=== PATIENT | male | born 1945 | race Caucasian/White ===

== ENCOUNTER 2018-01-22 10:35 | Emergency (ER) | payer MEDICARE ==
--- NOTE | 2018-01-22 11:10 | ED ---
Throat Pain/Nasal Congestion - HPI Summary HPI Summary: 72 y/o male presents to the ED c/o episodes of "sawtooth disturbance in vision" lasting 10-15 minutes, intermittently.Pt first developed this around 3 months ago, episodes occurring once every 7-10 days. Pt had 1x episode yesterday and 2x today before coming to the ED. Denies pain, trouble with speech. Pt states he does have a chronic floater that is "always there". Associated sx: intermittent ringing in ears. Recent R knee sx (October 2017). PCP Y[facility]. FHx - mother had ocular degeneration. This is scribe Ed Alena documenting for attending Grayson Jain MD. I, Dr. Jain, personally performed the services described in this documentation as scribed in my presence and it is both accurate and complete. - History of Current Complaint Chief Complaint: EDEyeProblem Time Seen by Provider: 01/22/18 10:58 Hx Obtained From: Patient Onset/Duration: Lasting Minutes - Allergies/Home Medications Allergies/Adverse Reactions: Allergies Allergy/AdvReac Type Severity Reaction Status Date / Time No Known Allergies Allergy Verified 01/22/18 10:52 Home Medications: Home Medications Finasteride TAB* [Proscar TAB*] 5 mg PO DAILY 01/22/18 [History Confirmed ] Olmesartan/Hydrochlorothiazide [Olmesartan Medoxomil/Hydr 20-12.5 mg] 0.5 tab PO DAILY 01/22/18 [History Confirmed 01/22/18] Tamsulosin CAP* [Flomax CAP*] 0.4 mg PO DAILY 01/22/18 [History Confirmed ] Timolol 0.5% OPTH.MESHA* [Timoptic 0.5% Opth*] 1 drop BOTH EYES BID 01/22/18 [ History Confirmed 01/22/18] Varicella-Zoster Ge/As01b/Pf* [Shingrix Vial Kit*] 50 mcg IM ONCE 01/22/18 [ History Confirmed 01/22/18] PMH/Surg Hx/FS Hx/Imm Hx Previously Healthy: No Endocrine/Hematology History: Denies: Hx Diabetes Cardiovascular History: Reports: Hx Hypertension - CONTROL WITH MEDICATION Denies: Hx Pacemaker/ICD History: Reports: Hx Kidney Stones - YEARS AGO - PASSED, Other Problems/ Disorders - HX OF ENLARGED PROSTATE Denies: Hx Renal Disease Musculoskeletal History: Denies: Hx Scoliosis Sensory History: Reports: Hx Cataracts - RIGHT, Hx Contacts or Glasses - READING GLASSES, Hx Glaucoma - BILATERAL Denies: Hx Hearing Aid Opthamlomology History: Reports: Hx Cataracts - RIGHT, Hx Contacts or Glasses - READING GLASSES, Hx Glaucoma - BILATERAL Neurological History: Denies: Hx Headaches Psychiatric History: Denies: Hx Panic Disorder - Surgical History Surgery Procedure, Year, and Place: 2013 eye surgery right 1 RETINA WILY,IN OFFICE PROCEDURE- NO IMPLANTS. 2010 [place] 2011 knee left SURGERY, [facility]. 2012 RIGHT hernia repair [place] [facility] RIGHT KNEE REPAIR 2017 [facility] Hx Anesthesia Reactions: No Infectious Disease History: No Infectious Disease History: Denies: Traveled Outside the [place] in Last 30 Days - Family History Known Family History: Positive: Other - mother - ocular degeneration - Social History Alcohol Use: None Hx Substance Use: No Substance Use Type: Reports: None Hx Tobacco Use: No Smoking Status (MU): Former Smoker Type: Cigars Amount Used/How Often: OCCASIONAL CIGAR Have You Smoked in the Last Year: Yes Review of Systems Constitutional: Negative Positive: Other - "sawtooth disturbance in vision" ENT: Other - ringing in ears Cardiovascular: Negative Respiratory: Negative Gastrointestinal: Negative Genitourinary: Negative Musculoskeletal: Negative Skin: Negative Neurological: Negative Psychological: Normal All Other Systems Reviewed And Are Negative: Yes Physical Exam - Summary Physical Exam Summary: Appearance: The patient is well-nourished in no acute distress and in no acute pain. Skin: The skin is warm and dry and skin color reflects adequate perfusion. HEENT: The head is normocephalic and atraumatic. The pupils are equal and reactive. The conjunctivae are clear and without drainage. Nares are patent and without drainage. Mouth reveals moist mucous membranes and the throat is without erythema and exudate. The external ears are intact. The ear canals are patent and without drainage. The tympanic membranes are intact. Neck: The neck is supple with full range of motion and non-tender. There are no carotid bruits. There is no neck vein distension. Respiratory: Chest is non-tender. Lungs are clear to auscultation and breath sounds are symmetrical and equal. Cardiovascular: Heart is regular rate and rhythm. There is no murmur or rub auscultated. There is no peripheral edema and pulses are symmetrical and equal. Abdomen: The abdomen is soft and non-tender. There are normal bowel sounds heard in all four quadrants and there is no organomegaly palpated. Musculoskeletal: There is no back tenderness noted. Extremities are non-tender with full range of motion. There is good capillary refill. There is no peripheral edema or calf tenderness elicited. Neurological: Patient is alert and oriented to person, place and time. The patient has symmetrical motor strength in all four extremities. Cranial nerves are grossly intact. Deep tendon reflexes are symmetrical and equal in all four extremities. Psychiatric: The patient has an appropriate affect and does not exhibit any anxiety or depression. Triage Information Reviewed: Yes Vital Signs On Initial Exam: Initial Vitals Temp Pulse Resp BP Pulse Ox 97.9 F 64 16 136/79 98 01/22/18 10:46 01/22/18 10:46 01/22/18 10:46 01/22/18 10:46 01/22/18 10:46 Vital Signs Reviewed: Yes Diagnostics - Vital Signs Vital Signs Temp Pulse Resp BP Pulse Ox 01/22/18 10:46 97.9 F 64 16 136/79 98 - Laboratory Result Diagrams: 01/22/18 11:33 01/22/18 11:33 Lab Statement: Any lab studies that have been ordered have been reviewed, and results considered in the medical decision making process. - CT HEAD/NECK CTA CT Interpretation: No Acute Changes - #. No evidence for central large vessel intracranial arterial occlusion or stenosis. #. No acute intracranial process evident. CT Interpretation Completed By: Radiologist - EKG 1 EKG Interpretation: 11:27 - SR @ 62 BPM. RBBB Re-Evaluation - Re-Evaluation 1 Re-Evaluation Time: 14:32 Comment: discuss test results, plan of care EENT Course/Dx - Course Course Of Treatment: Mr. Garcia presents complaining that for about 3 months he has had episodes of multiple floaters in his bilateral eyes that last for just a few minutes. They occur about once a week. 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 He had an episode yesterday and an episode today which is unusual for him so he presented to the emergency department. He has no headache and his symptoms have resolved on arrival. He was worked up with labs and CT of the head and neck which are within normal limits showing only very mild atherosclerotic carotid disease. It 's unlikely that he would have TIAs in the same location for 3 months. I spoke with Dr. Arzate on-call for neurology and he agreed that it is unlikely there is any dangerous event occurring and recommended follow-up with neurology as an outpatient. - Diagnoses Provider Diagnoses: Ocular migraine - Provider Notifications Discussed Care Of Patient With: Tamika Arzate Time Discussed With Above Provider: 14:20 Instructed by Provider To: Other - Have pt f/u at Dr. Arzate's office Discharge - Sign-Out/Discharge Documenting (check all that apply): Patient Departure - Discharge Plan Condition: Stable Disposition: HOME Patient Education Materials: Ocular Migraine (ED) Referrals: Tamika Arzate MD [Medical Doctor] - 2 Days (PLEASE F/U IN 1-2 DAYS) Additional Instructions: RETURN TO THE ED FOR WORSENING SYMPTOMS - Billing Disposition and Condition Condition: STABLE Disposition: Home
--- OUTSIDE RECORDS SUMMARY | 2018-01-22 11:28 | XMS REPORT ---
:1945 External Reference #:[id number] Author Organization [facility] Address [address] [address] Phone [phone] Care Team Providers Name Role Phone Kalpana Fonseca RN MS MATERIAL EXPEDITER Care Team Information Family Services Assistant Unavailable Payers Type Date Identification Numbers Payment Provider Subscriber Medicare Primary Effective: Policy Number: Medicare Anjum Garcia 2008 [id number] PayID: [id number] [address] [place] [address] [facility] Part [facility] Policy Number: [id number] [facility] Healthcare Options Anjum Garcia PayID: [id number] [address] [place] [address] Problems Date Description Provider Status Onset: 01/14/2018 Essential hypertension Yong Gage PA Active Onset: 01/14/2018 Mixed hyperlipidemia Yong Gage PA Active Onset: 09/19/2014 Tobacco user Elicia Caldera MD Active Onset: 09/19/2014 Glaucoma Elicia Caldera MD Active Onset: 09/28/2010 Benign prostatic hypertrophy with Joseph Cantrell MD Active outflow obstruction Onset: 09/19/2014 Steatosis of liver Elicia Caldera MD Active Onset: 01/14/2018 Diverticular disease of colon Yong Gage PA Active Onset: 06/19/2014 Actinic keratosis Elicia Caldera MD Active Onset: 09/28/2010 Carpal tunnel syndrome Joseph Cantrell MD Active Family History Date Family Member(s) Problem(s) Comments Father due to Rheumatoid () Arthriitis Mother Waldenstroms Macroglobulinemia : (age 92 Mother due to Pneumonia Years) Number of Siblings Siblings: none. Pt is an only child. Social History Type Date Description Comments Marital Status Significant Other Occupation [facility] q winterwas in the [employer] Cigarette Use Former Cigarette Smoker 1 Pack Quit 2011, now social Daily cigarettes smoking regular Cigar smoking 5 q week, X 20 yrs, quitted once for 10 yrs before with a friend, resumed after divorce, ETOH Use Occasionally consumes alcohol Smoking Patient is a former smoker 1pk per day for ~30yrs. Smoking Patient is a current smoker, Cigar ~2-3 per week smokes some days Allergies, Adverse Reactions, Alerts Date Description Reaction Status Severity Comments 04/03/2005 NKDA active Medications Medication Date Status Form Strength Qnty SIG Indications Ordering Provider Shingrix 01/14/ Active Suspension 50mcg 1units 1 injection Z00. 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 Soledad Maleate 2016 eyes twice Leslie a day MD Carlota Olmesartan 11/19/ Active Tablets 20-12.5mg 45tabs take I10 Soledad Medoxomil/Hy 2017 one-half Leslie drochlorothi tablet by MD Carlota azide mouth every day I10 Tamsulosin HCL 11/19/2016 Active Capsules 0.4mg 90caps take 1 N40.1 Mernadam, capsule by Leslie Van MD mouth every day R97.2 Finasteride 05/31/2013 Active Tablets 5mg 90tabs 1 by mouth N40.1 Macadam, every day Leslie Van MD Chantix 06/01/2015 - Hx Tablets 0.5mg 1tabs to start 1 Elicia Caldera Starting Month 05/16/2016 X 11 week before MD Romeo Celestin & 1 target quit mg X day; day 1-3: 42 0.5mg qday; day 4-7: 0.5mg bid; day 7+ 1mg twice a day for 11 weeks Chantix 06/01/2015 - Hx Tablets 1mg 1pack after the Elicia Caldera Continuing 05/16/2016 starter packSabi MD Month Pak continue 1 tab twice a day for 11 weeks. may extend tx for another 12 weeks. Combigan 09/19/2014 - Hx Solution 0.2-0 b/l bid Elicia Caldera 06/01/2015 .5% MD Sabi Travatan Z 09/19/2014 - Hx Solution 0.004 1 qday Elicia Caldera 06/01/2015 % MD Sabi Maxitrol 07/14/2014 - Hx Ointment 3.5-1 3.5g 1/2 " ribbon Elicia Caldera 09/19/2014 0000- over affected MD Sabi 0.1 eye conjunctival sac 3-4 X daily, max 2 weeks Optivar 07/04/2014 - Hx Solution 0.05% 1units 1 ggt to b/l 372.00 Elicia Caldera 09/19/2014 twice a day as MD Sabi needed Trimethoprim 07/04/2014 - Hx Solution 75414 1units 2 ggt four 372.00 Elicia Caldera Sulfate/Polymy 09/19/2014 -0.1U times a day x MD Sabi jose B Sulfate nit/M 1-2 weeks L-% Augmentin 04/20/2014 - Hx Tablets 875-1 20tabs 1 tab by mouth V41.3 Elicia Caldera 05/30/2014 25mg twice a day x MD Sabi 10 days Elidel Cream 02/17/2014 - Hx Cream 1% 60gm Apply Elicia Caldera 05/30/2014 Sparingly bid MD Sabi prn Cipro 11/18/2012 - Hx Tablets 250mg 14tabs 1 tab po bidx 599.70 Elicia Caldera 05/31/2013 7 days MD Sabi Aspirin 11/16/2012 - Hx Tablets 81mg 30tabs 1 po qd Elicia Caldera 11/19/2016 MD Sabi Fluorouracil 05/25/2012 - Hx Cream 5% 1tube Apply bid to 702.11 Trabout , 11/25/2012 lesions x 3 andres Ruiz MD 702.19 Phentermine 01/06/2012 - Hx Tablets 37.5mg 30tabs 1 po qam 278.00 Trabout, HCL 05/25/2012 MD Joseph Ibuprofen 02/21/2010 - Hx Tablets 200mg Takes 3 at a 721.1 Trabout, 11/16/2012 time with food MD Joseph Gabapentin 09/15/2009 - Hx Capsules 300mg 90caps 1 po qhs x 1 721.1 Trabout, 11/03/2009 week, 2 po qhs shaniqua Ruiz 1 week. can MD increase to as much as 4 po qhs Meloxicam 09/15/2009 - Hx Tablets 15mg 30tabs 1 po qd with 721.1 Trabout, 12/20/2009 food MD Joseph Physical 09/15/2009 - Hx dx: cervical 721.1 Trabout, Therapy 05/20/2011 neck pain with Joseph C5-C6 radiculopathy evaluate and rx biw-tiw Trial cervical traction. Benicar HCT 07/26/2009 - Hx Tablets 20-12.5m 90tabs take one-half I10 Macadam, 11/19/2016 g tablet by mouth Leslie every day MD Carlota I1Brissa Cipro 12/26/2008 - Hx Tablets 500mg 30tabs 1 po bid 601.0 Trabout, 07/26/2009 MD Joseph Flomax 08/12/2007 - Hx Capsules 0.4mg 90caps Take 1 capsule N40.1 Kalpana Fonseca 11/19/2016 by mouth C RN MS MATERIAL EXPEDITER every day R97.2 Chantix 07/09/2006 - Hx Starter 1Pack as directed 305.1 Trabout, 02/21/2010 Pack .5/1mg for smoking MD Joseph cessation. Elidel 01/01/2006 - Hx Cream 1% 30gm Apply Trabout, Cream 05/20/2011 Sparingly bid MD Joseph prn Avalide 01/04/2005 - Hx Tablets 150-12.5mg 90tabs 1 po qd 401.1 Trabout , 07/26/2009 MD Joseph Immunizations CPT Code Status Date Vaccine Reaction Lot # [id number] Given 01/14/2018 Tdap (Adacel) Ages 7 And [id number] Above Only 18545 Given 04/25/2016 Influenza Vac, 3 Yrs & [id number] Older, Quadrivalent, Split, [place] Use 92900 Given 04/26/2015 Influenza Vac, 3 Yrs & [id number] Older, Quadrivalent, Split, Im Use Q2038 Given 05/30/2014 Fluzone Trivalent No allergy to eggs/egg [id number] Immunization products, No illness past 48 hrs., has had vaccine in past. Q2038 Given 04/12/2013 Fluzone Trivalent [id number] Immunization Q2038 Given 05/25/2012 Fluzone Trivalent [id number] Immunization 38341 Given 01/04/2011 Varicella (Chicken Pox) 1345Z Immunization 32858 Given 11/13/2010 Varicella (Chicken Pox) Immunization 56567 Given 11/13/2010 Varicella-Zoster Immune 1345Z Globulin 95616 Given 12/24/1999 Immunization Td 7 Yrs Or Older Vital Signs Date Vital Result Comment 01/14/2018 Weight 225.00 lb Heart Rate 73 /min BP Systolic 121 mmHg BP Diastolic 77 mmHg Height 73 inches 6'1" BMI (Body Mass Index) 29.7 kg/m2 Urine Dipstick - Blood 1+ Urine Dipstick - Protein NEGATIVE Urine Dipstick - Glucose NEGATIVE Urine Dipstick - Leukocytes 1+ Left ear audiology results 8FT Right ear audiology results 8FT Left Visual Acuity Distance 20/40 Both 20/40 11/19/2016 Weight 243.00 lb Heart Rate 96 /min BP Systolic 115 mmHg BP Diastolic 78 mmHg Height 73 inches 6'1" BMI (Body Mass Index) 32.1 kg/m2 05/16/2016 Weight 239.12 lb Heart Rate 78 /min BP Systolic 130 mmHg BP Diastolic 74 mmHg Height 73 inches 6'1" BMI (Body Mass Index) 31.5 kg/m2 Urine Dipstick - Blood 1+ Urine Dipstick - Protein TRACE Urine Dipstick - Glucose NEGATIVE Urine Dipstick - Leukocytes NEGATIVE 12/29/2015 Weight 245.25 lb Heart Rate 84 /min BP Systolic 135 mmHg BP Diastolic 85 mmHg Height 73 inches 6'1" BMI (Body Mass Index) 32.4 kg/m2 06/01/2015 Weight 243.12 lb Heart Rate 83 /min BP Systolic 132 mmHg BP Diastolic 79 mmHg Height 73 inches 6'1" BMI (Body Mass Index) 32.1 kg/m2 Urine Dipstick - Blood 1+ Urine Dipstick - Protein NEGATIVE Urine Dipstick - Glucose NEGATIVE Urine Dipstick - Leukocytes 1+ Right Visual Acuity Distance 20/30 Left Visual Acuity Distance 20/30 Both 20/30 05/16/2015 Weight 243.00 lb Heart Rate 84 /min BP Systolic 134 mmHg BP Diastolic 86 mmHg Height 73 inches 6'1" BMI (Body Mass Index) 32.1 kg/m2 09/12/2014 Weight 242.00 lb Heart Rate 74 /min BP Systolic 129 mmHg BP Diastolic 80 mmHg Height 73 inches 6'1" BMI (Body Mass Index) 31.9 kg/m2 07/04/2014 Weight 245.00 lb Heart Rate 107 /min BP Systolic 150 mmHg BP Diastolic 93 mmHg 05/30/2014 Weight 243.12 lb Heart Rate 90 /min BP Systolic 124 mmHg BP Diastolic 81 mmHg Height 74.5 inches 6'2.50" BMI (Body Mass Index) 30.8 kg/m2 Urine Dipstick - Blood TRACE Urine Dipstick - Protein NEGATIVE Urine Dipstick - Glucose NEGATIVE 04/20/2014 Weight 245.00 lb Heart Rate 89 /min BP Systolic 134 mmHg BP Diastolic 92 mmHg Height 74 inches 6'2" BMI (Body Mass Index) 31.5 kg/m2 02/17/2014 Weight 242.00 lb Heart Rate 76 /min BP Systolic 123 mmHg BP Diastolic 85 mmHg Height 74 inches 6'2" BMI (Body Mass Index) 31.1 kg/m2 05/31/2013 Weight 243.00 lb Heart Rate 81 /min BP Systolic 130 mmHg BP Diastolic 88 mmHg Height 74 inches 6'2" BMI (Body Mass Index) 31.2 kg/m2 Urine Dipstick - Blood 1+ Pos WBC Urine Dipstick - Protein NEGATIVE Urine Dipstick - Glucose NEGATIVE 11/25/2012 Weight 236.00 lb Heart Rate 95 /min BP Systolic 138 mmHg BP Diastolic 84 mmHg Height 73 inches 6'1" BMI (Body Mass Index) 31.1 kg/m2 Urine Dipstick - Blood 1+ And WBC Urine Dipstick - Protein NEGATIVE Urine Dipstick - Glucose NEGATIVE 11/16/2012 Weight 238.00 lb Heart Rate 78 /min BP Systolic 129 mmHg BP Diastolic 85 mmHg Urine Dipstick - Blood 1+ WBC Pos +1 Urine Dipstick - Protein 1+ Urine Dipstick - Glucose NEGATIVE 10/28/2012 Weight 235.00 lb Heart Rate 84 /min BP Systolic 139 mmHg BP Diastolic 84 mmHg 09/16/2012 Weight 238.00 lb Heart Rate 97 /min BP Systolic 127 mmHg BP Diastolic 83 mmHg 05/25/2012 Weight 248.00 lb Heart Rate 95 /min BP Systolic 124 mmHg BP Diastolic 77 mmHg Urine Dipstick - Blood 1+ And WBC Urine Dipstick - Protein NEGATIVE Urine Dipstick - Glucose NEGATIVE Last Menstrual Period 0 01/06/2012 Weight 253.00 lb Heart Rate 82 /min BP Systolic 120 mmHg BP Diastolic 70 mmHg Height 74 inches 6'2" BMI (Body Mass Index) 32.5 kg/m2 09/02/2011 Weight 247.00 lb Heart Rate 87 /min BP Systolic 117 mmHg BP Diastolic 75 mmHg 05/20/2011 Weight 237.00 lb Heart Rate 99 /min BP Systolic 136 mmHg BP Diastolic 83 mmHg Height 77 inches 6'5" BMI (Body Mass Index) 28.1 kg/m2 Urine Dipstick - Blood 1+ And WBC Urine Dipstick - Protein NEGATIVE Urine Dipstick - Glucose NEGATIVE 05/13/2011 Weight 236.00 lb Heart Rate 110 /min BP Systolic 128 mmHg BP Diastolic 82 mmHg 09/28/2010 Weight 239.00 lb Heart Rate 96 /min BP Systolic 118 mmHg BP Diastolic 79 mmHg 06/18/2010 Weight 234.00 lb Heart Rate 93 /min BP Systolic 134 mmHg BP Diastolic 80 mmHg 02/21/2010 Weight 250.00 lb Heart Rate 104 /min BP Systolic 123 mmHg BP Diastolic 79 mmHg Height 75 inches 6'3" BMI (Body Mass Index) 31.2 kg/m2 Urine Dipstick - Blood 1+ wbc Urine Dipstick - Protein NEGATIVE Urine Dipstick - Glucose NEGATIVE 12/20/2009 Weight 249.00 lb Heart Rate 99 /min BP Systolic 136 mmHg BP Diastolic 82 mmHg 09/15/2009 Weight 254.00 lb Heart Rate 107 /min BP Systolic 144 mmHg BP Diastolic 88 mmHg 07/26/2009 Weight 253.00 lb Heart Rate 105 /min BP Systolic 136 mmHg BP Diastolic 82 mmHg 06/21/2009 Weight 246.00 lb Heart Rate 118 /min BP Systolic 150 mmHg BP Diastolic 84 mmHg 02/17/2009 Urine Dipstick - Blood 1+ Urine Dipstick - Protein NEGATIVE Urine Dipstick - Glucose NEGATIVE 01/23/2009 Body Temperature 97.6 F Heart Rate 87 /min BP Systolic 144 mmHg BP Diastolic 86 mmHg Urine Dipstick - Blood 1+ And A Trace Of WBC Urine Dipstick - Protein TRACE Urine Dipstick - Glucose NEGATIVE 01/09/2009 Weight 242.00 lb Heart Rate 83 /min BP Systolic 124 mmHg BP Diastolic 84 mmHg 12/26/2008 Body Temperature 97.7 F Weight 240.00 lb Heart Rate 91 /min BP Systolic 144 mmHg BP Diastolic 99 mmHg Height 74 inches 6'2" BMI (Body Mass Index) 30.8 kg/m2 Urine Dipstick - Blood 1+ Urine Dipstick - Protein 1+ Urine Dipstick - Glucose NEGATIVE 11/23/2008 Weight 245.00 lb Heart Rate 101 /min BP Systolic 143 mmHg BP Diastolic 89 mmHg 08/12/2007 Weight 235.00 lb With Boots Heart Rate 94 /min BP Systolic 144 mmHg BP Diastolic 83 mmHg Height 6.2 inches 0'6.20" BMI (Body Mass Index) 4297.7 kg/m2 Urine Dipstick - Blood TRACE And WBC Urine Dipstick - Protein NEGATIVE Urine Dipstick - Glucose NEGATIVE 07/09/2006 Weight 241.00 lb Heart Rate 90 /min BP Systolic 138 mmHg BP Diastolic 80 mmHg Height 6.2 inches 0'6.20" BMI (Body Mass Index) 4407.5 kg/m2 Urine Dipstick - Blood TRACE Urine Dipstick - Protein TRACE Urine Dipstick - Glucose TRACE 04/03/2005 Weight 238.00 lb Heart Rate 92 /min BP Systolic 119 mmHg BP Diastolic 72 mmHg Urine Dipstick - Blood 1+ Urine Dipstick - Protein 1+ Urine Dipstick - Glucose NEGATIVE Results Test Date Test Result H/L Range Note Laboratory test finding 01/14/2018 PSA <pending> Magnesium <pending> TSH <pending> Esr <pending> Comprehensive Metabolic (CMP) 05/13/2016 Sodium 136 mmol/L 134-142 Potassium 5.2 mmol/L 3.5-5.2 Chloride 101 mmol/L 97-109 Carbon Dioxide 32 mmol/L 24-34 Glucose 103 mg/dL 70-105 BUN 14 mg/dL 6-26 Creatinine 1.0 mg/dL 0.5-1.4 Calcium 9.6 mg/dL 8.5-10.2 Total Protein 6.9 g/dL 6.0-8.0 Albumin 4.2 g/dL 3.6-4.9 Globulin 2.7 g/dL 2.0-3.5 A/G Ratio 1.6 Ratio 1.0-2.2 Total Bilirubin 0.5 mg/dL 0.1-1.3 Alkaline Phosphatase 55 U/L 24-140 Alt 26 U/L 3-42 Ast 17 U/L 8-42 Anion Gap 8 mmol/L 6-14 Crystal Egfr >60 >60 1 Non Crystal Egfr >60 >60 2 CBC With Auto Diff 05/13/2016 WBC 9.5 K/uL 4.1-11.0 RBC 5.13 M/uL 4.60-6.10 Hemoglobin 16.6 gm/dL 13.5-18.0 Hematocrit 47.7 % 41.0-53.0 MCV 93.0 fL 80.0-97.0 MCH 32.3 pg High 27.0-32.0 MCHC 34.8 g/dL 32.0-36.0 RDW 12.7 % 11.5-14.5 PLT Count 198 K/ul 140-400 Neutrophil 53.4 % 35.0-75.0 Lymphocyte 34.2 % 16.0-52.0 Monocyte 7.6 % 2.0-10.0 Eosinophil 3.5 % 0.0-5.0 Basophil 1.3 % 0.0-4.0 Abs Neutrophils 5.1 K/uL 2.1-8.0 Abs Lymphocytes 3.3 K/uL 0.8-5.5 Abs Monocytes 0.7 K/uL 0.1-1.0 Abs Eosinophils 0.3 K/uL 0.0-0.5 Abs Basophils 0.1 K/uL 0.0-0.3 Lipid 05/13/2016 Cholesterol 152 mg/dL 50-199 Triglycerides 253 mg/dL High 30-200 HDL 33 mg/dL 29-71 3 Chol/ HDL Ratio 4.6 ratio 4.0-6.7 VLDL 51 mg/dL High 2-29 LDL (Calc) 68 mg/dL 20-99 4 Laboratory test finding 05/13/2016 TSH 2.52 uIU/mL 0.35-4.94 PSA 1.110 ng/mL 0.000-4.000 5 CBC With Auto Diff 05/29/2015 WBC 8.1 K/uL 4.1-11.0 RBC 4.93 M/uL 4.60-6.10 Hemoglobin 15.7 gm/dL 13.5-18.0 Hematocrit 46.1 % 41.0-53.0 MCV 93.5 fL 80.0-97.0 MCH 31.8 pg 27.0-32.0 MCHC 34.0 g/dL 32.0-36.0 RDW 12.7 % 11.5-14.5 PLT Count 172 K/ul 140-400 Neutrophil 48.2 % 35.0-75.0 Lymphocyte 37.5 % 16.0-52.0 Monocyte 7.6 % 2.0-10.0 Eosinophil 5.3 % High 0.0-5.0 Basophil 1.4 % 0.0-4.0 Abs Neutrophils 3.9 K/uL 2.1-8.0 Abs Lymphocytes 3.0 K/uL 0.8-5.5 Abmon 0.6 K/uL 0.1-1.0 Abs Eosinophils 0.4 K/uL 0.0-0.5 Abs Basophils 0.1 K/uL 0.0-0.3 Laboratory test finding 05/29/2015 Vitamin B12 248 pg/mL 180-914 TSH 1.89 uIU/mL 0.35-4.94 Lipid 05/29/2015 Cholesterol 148 mg/dL 50-199 Triglycerides 315 mg/dL High 30-200 HDL 29 mg/dL 29-71 6 Chol/ HDL Ratio 5.1 ratio 4.0-6.7 VLDL 63 mg/dL High 2-29 LDL (Calc) 56 mg/dL 20-99 7 Comprehensive Metabolic (CMP) 05/29/2015 Sodium 135 mmol/L 134-142 Potassium 4.6 mmol/L 3.5-5.2 Chloride 103 mmol/L 97-109 Carbon Dioxide 27 mmol/L 24-34 Glucose 101 mg/dL 70-105 BUN 14 mg/dL 6-26 Creatinine 1.0 mg/dL 0.5-1.4 Calcium 9.3 mg/dL 8.5-10.2 Total Protein 6.7 g/dL 6.0-8.0 Albumin 4.0 g/dL 3.6-4.9 Globulin 2.7 g/dL 2.0-3.5 A/G Ratio 1.5 Ratio 1.0-2.2 Total Bilirubin 0.5 mg/dL 0.1-1.3 Alkaline Phosphatase 55 U/L 24-140 Alt 18 U/L 3-42 Ast 15 U/L 8-42 Anion Gap 10 mmol/L 6-14 Crystal Egfr >60 >60 8 Non Crystal Egfr >60 >60 9 Laboratory test finding 05/29/2015 PSA 1.180 ng/mL 0.000-4.000 10 CBC With Auto Diff 09/12/2014 WBC 9.1 K/uL 4.1-11.0 11 RBC 5.15 M/uL 4.60-6.10 11 Hemoglobin 16.6 gm/dL 13.5-18.0 11 Hematocrit 47.9 % 41.0-53.0 11 MCV 92.9 fL 80.0-97.0 11 MCH 32.2 pg High 27.0-32.0 11 MCHC 34.7 g/dL 32.0-36.0 11 RDW 12.9 % 11.5-14.5 11 PLT Count 185 K/ul 140-400 11 Neutrophil 49.4 % 35.0-75.0 11 Lymphocyte 36.8 % 16.0-52.0 11 Monocyte 8.3 % 2.0-10.0 11 Eosinophil 4.3 % 0.0-5.0 11 Basophil 1.2 % 0.0-4.0 11 Abs Neutrophils 4.5 K/uL 2.1-8.0 11 Abs Lymphocytes 3.3 K/uL 0.8-5.5 11 Abmon 0.8 K/uL 0.1-1.0 11 Abs Eosinophils 0.4 K/uL 0.0-0.5 11 Abs Basophils 0.1 K/uL 0.0-0.3 11 Comprehensive Metabolic (CMP) 09/12/2014 Sodium 136 mmol/L 134-142 11 Potassium 4.7 mmol/L 3.5-5.2 11 Chloride 101 mmol/L 97-109 11 Carbon Dioxide 28 mmol/L 24-34 11 Glucose 96 mg/dL 70-105 11 BUN 11 mg/dL 6-26 11 Creatinine 1.0 mg/dL 0.5-1.4 11 Calcium 9.7 mg/dL 8.5-10.2 11 Total Protein 7.4 g/dL 6.0-8.0 11 Albumin 4.4 g/dL 3.6-4.9 11 Globulin 3.0 g/dL 2.0-3.5 11 A/G Ratio 1.5 Ratio 1.0-2.2 11 Total Bilirubin 0.5 mg/dL 0.1-1.3 11 Alkaline Phosphatase 53 U/L 24-140 11 Alt 45 U/L High 3-42 11 Ast 26 U/L 8-42 11 Anion Gap 12 mmol/L 6-14 11 Crystal Egfr >60 >60 11, 12 Non Crystal Egfr >60 >60 11, 13 CBC With Auto Diff 05/24/2014 WBC 8.7 K/uL 4.1-11.0 14 RBC 4.99 M/uL 4.60-6.10 14 Hemoglobin 16.0 gm/dL 13.5-18.0 14 Hematocrit 46.9 % 41.0-53.0 14 MCV 93.9 fL 80.0-97.0 14 MCH 32.0 pg 27.0-32.0 14 MCHC 34.1 g/dL 32.0-36.0 14 RDW 12.5 % 11.5-14.5 14 PLT Count 186 K/ul 140-400 14 Neutrophil 53.9 % 35.0-75.0 14 Lymphocyte 32.5 % 16.0-52.0 14 Monocyte 7.6 % 2.0-10.0 14 Eosinophil 5.1 % High 0.0-5.0 14 Basophil 0.9 % 0.0-4.0 14 Abs Neutrophils 4.7 K/uL 2.1-8.0 14 Abs Lymphocytes 2.8 K/uL 0.8-5.5 14 Abmon 0.7 K/uL 0.1-1.0 14 Abs Eosinophils 0.4 K/uL 0.0-0.5 14 Abs Basophils 0.1 K/uL 0.0-0.3 14 Comprehensive Metabolic (CMP) 05/24/2014 Sodium 137 mmol/L 134-142 14 Potassium 4.6 mmol/L 3.5-5.2 14 Chloride 101 mmol/L 97-109 14 Carbon Dioxide 33 mmol/L 24-34 14 Glucose 98 mg/dL 70-105 14 BUN 11 mg/dL 6-26 14 Creatinine 1.0 mg/dL 0.5-1.4 14 Calcium 9.3 mg/dL 8.5-10.2 14 Total Protein 6.9 g/dL 6.0-8.0 14 Albumin 4.1 g/dL 3.6-4.9 14 Globulin 2.8 g/dL 2.0-3.5 14 A/G Ratio 1.5 Ratio 1.0-2.2 14 Total Bilirubin 0.4 mg/dL 0.1-1.3 14 Alkaline Phosphatase 50 U/L 24-140 14 Alt 35 U/L 3-42 14 Ast 20 U/L 8-42 14 Anion Gap 8 mmol/L 6-14 14 Crystal Egfr >60 >60 14, 15 Non Crystal Egfr >60 >60 14, 16 Lipid 05/24/2014 Cholesterol 145 mg/dL 50-199 14 Triglycerides 347 mg/dL High 30-200 14 HDL 28 mg/dL Low 29-71 14, 17 Chol/ HDL Ratio 5.2 ratio 4.0-6.7 14 VLDL 69 mg/dL High 2-29 14 LDL (Calc) 48 mg/dL 20-99 14, 18 Laboratory test finding 05/24/2014 TSH 1.61 uIU/mL 0.34-5.60 14 Vitamin B12 263 pg/mL 180-914 14 PSA 1.020 ng/mL 0.000-4.000 14, 19 Comprehensive Metabolic (CMP) 05/24/2013 Sodium 139 mmol/L 134-142 20 Potassium 4.4 mmol/L 3.5-5.2 20 Chloride 105 mmol/L 97-109 20 Carbon Dioxide 29 mmol/L 24-34 20 Glucose 98 mg/dL 70-105 20 BUN 15 mg/dL 6-26 20 Creatinine 1.1 mg/dL 0.5-1.4 20 Calcium 9.3 mg/dL 8.5-10.2 20 Total Protein 6.8 g/dL 6.0-8.0 20 Albumin 4.4 g/dL 3.6-4.9 20 Globulin 2.4 g/dL 2.0-3.5 20 A/G Ratio 1.8 Ratio 1.0-2.2 20 Total Bilirubin 0.5 mg/dL 0.1-1.3 20 Alkaline Phosphatase 52 U/L 24-140 20 Alt 24 U/L 3-42 20 Ast 16 U/L 8-42 20 Anion Gap 9 mmol/L 6-14 20 Crystal Egfr >60 >60 20, 21 Non Crystal Egfr >60 >60 20, 22 CBC With Auto Diff 05/24/2013 WBC 9.0 K/uL 4.1-11.0 20 RBC 4.80 M/uL 4.60-6.10 20 Hemoglobin 14.8 gm/dL 13.5-18.0 20 Hematocrit 44.4 % 41.0-53.0 20 MCV 92.5 fL 80.0-97.0 20 MCH 30.8 pg 27.0-32.0 20 MCHC 33.3 g/dL 32.0-36.0 20 RDW 13.2 % 11.5-14.5 20 PLT Count 185 K/ul 140-400 20 Neutrophil 53.2 % 35.0-75.0 20 Lymphocyte 33.4 % 16.0-52.0 20 Monocyte 8.6 % 2.0-10.0 20 Eosinophil 3.7 % 0.0-5.0 20 Basophil 1.1 % 0.0-4.0 20 Abs Neutrophils 4.8 K/uL 2.1-8.0 20 Abs Lymphocytes 3.0 K/uL 0.8-5.5 20 Abmon 0.8 K/uL 0.1-1.0 20 Abs Eosinophils 0.3 K/uL 0.0-0.5 20 Abs Basophils 0.1 K/uL 0.0-0.3 20 Lipid 05/24/2013 Cholesterol 143 mg/dL 50-199 20 Triglycerides 162 mg/dL 30-200 20 HDL 33 mg/dL 29-71 20, 23 Chol/ HDL Ratio 4.3 ratio 4.0-6.7 20 VLDL 32 mg/dL High 2-29 20 LDL (Calc) 78 mg/dL 20-99 20, 24 Laboratory test finding 05/24/2013 TSH 1.92 uIU/mL 0.34-5.60 20 Basic (BMP) 12/03/2012 Sodium 138 mmol/L 134-142 25 Potassium 4.3 mmol/L 3.5-5.2 25 Chloride 101 mmol/L 97-109 25 Carbon Dioxide 31 mmol/L 24-34 25 Glucose 102 mg/dL 70-105 25 BUN 11 mg/dL 6-26 25 Creatinine 1.1 mg/dL 0.5-1.4 25 Calcium 9.3 mg/dL 8.5-10.2 25 Anion Gap 10 mmol/L 6-14 25 Non Crystal Egfr >60 >60 25, 26 Crystal Egfr >60 >60 25, 27 Laboratory test finding 11/18/2012 Urine Culture Microbiology res <SEE 28, 29 NOTE> Urinalysis-RL 11/18/2012 Color YELLOW 28 Appearance CLOUDY 28 Spec Grav Urine 1.024 (1.003-1.030) 28 PH Urine 5.5 (5.0-7.5) 28 Leuk Esterase NEGATIVE (Neg) 28 Nitrite Urine NEGATIVE (Neg) 28 Protein Urine NEGATIVE (Neg) 28 Glucose Urine NEGATIVE (Neg) 28 Ketone Urine NEGATIVE (Neg) 28 Urobilinogen 0.2 mg/dL (0-1.0) 28 Bilirubin Urine NEGATIVE (Neg) 28 Blood/HGB Urine 3+ (Neg) 28, 30 Urine Microscopic Only -RL 11/18/2012 Urine WBC NONE SEEN /HPF (0-5) 28 Urine RBC * 50-100 /HPF (0-2) 28, 31 Laboratory test finding 11/16/2012 Urine Culture Microbiology res <SEE 32 NOTE> Urinalysis-RL 11/16/2012 Rejected Test Cancelled Reason Comprehensive Metabolic 05/25/2012 Sodium 138 mmol/L 134-142 33 (CMP) Potassium 4.2 mmol/L 3.5-5.2 33 Chloride 100 mmol/L 97-109 33 Carbon Dioxide 30 mmol/L 24-34 33 Glucose 83 mg/dL 70-105 33 BUN 14 mg/dL 6-26 33 Creatinine 1.0 mg/dL 0.5-1.4 33 Calcium 9.4 mg/dL 8.5-10.2 33 Total Protein 6.9 g/dL 6.0-8.0 33 Albumin 4.4 g/dL 3.6-4.9 33 Globulin 2.5 g/dL 2.0-3.5 33 A/G Ratio 1.8 Ratio 1.0-2.2 33 Total Bilirubin 0.5 mg/dL 0.1-1.3 33 Alkaline Phosphatase 53 U/L 24-140 33 Alt 33 U/L 3-42 33 Ast 22 U/L 8-42 33 Anion Gap 12 mmol/L 6-14 33 Crystal Egfr >60 >60 33, 34 Non Crystal Egfr >60 >60 33, 35 CBC With Auto Diff 05/25/2012 WBC 10.1 K/uL 4.1-11.0 33 RBC 4.82 M/uL 4.60-6.10 33 Hemoglobin 15.3 gm/dL 13.5-18.0 33 Hematocrit 44.6 % 41.0-53.0 33 MCV 92.5 fL 80.0-97.0 33 MCH 31.8 pg 27.0-32.0 33 MCHC 34.4 g/dL 32.0-36.0 33 RDW 13.1 % 11.5-14.5 33 PLT Count 195 K/ul 140-400 33 Neutrophil 51.7 % 35.0-75.0 33 Lymphocyte 35.9 % 16.0-52.0 33 Monocyte 7.6 % 2.0-10.0 33 Eosinophil 3.9 % 0.0-5.0 33 Basophil 0.9 % 0.0-4.0 33 Abs Neutrophils 5.2 K/uL 2.1-8.0 33 Abs Lymphocytes 3.6 K/uL 0.8-5.5 33 Abs Monocytes 0.8 K/uL 0.1-1.0 33 Abs Eosinophils 0.4 K/uL 0.0-0.5 33 Abs Basophils 0.1 K/uL 0.0-0.3 33 Lipid 05/25/2012 Cholesterol 127 mg/dL 50-199 33 Triglycerides 288 mg/dL High 30-200 33 HDL 27 mg/dL Low 29-71 33, 36 Chol/ HDL Ratio 4.7 ratio 4.0-6.7 33 VLDL 58 mg/dL High 2-29 33 LDL (Calc) 42 mg/dL 20-129 33, 37 Non HDL Cholesterol 100 mg/dL 20-129 33 Laboratory test finding 05/25/2012 PSA 3.71 ng/mL 0.00-4.00 33, 38 TSH 0.66 uIU/mL 0.34-5.60 33 PSA Total And Free -RL 09/02/2011 PSA Total 3.1 NG/ML (0.0-4.0) 33 PSA Free 0.8 NG/ML 33 PSA % Free 26 % 33, 39 Comprehensive Metabolic (CMP) 05/15/2011 Sodium 135 mmol/L 135-144 40 Potassium 4.6 mmol/L 3.6-5.2 40 Chloride 98 mmol/L 97-110 40 Carbon Dioxide 28 mmol/L 23-32 40 Glucose 85 mg/dL 70-105 40 BUN 18 mg/dL 6-22 40 Creatinine 1.2 mg/dL 0.5-1.3 40 Calcium 9.5 mg/dL 8.6-10.2 40 BUN/CR 15 ratio 12-20 40 Total Protein 7.2 g/dL 5.8-7.8 40 Albumin 4.1 g/dL 3.5-4.8 40 Globulin 3.1 g/dL 2.0-3.5 40 A/G Ratio 1.3 Ratio 1.0-2.2 40 Total Bilirubin 0.7 mg/dL 0.3-1.2 40 Alkaline Phosphatase 50 U/L 24-140 40 Alt 29 U/L 5-45 40 Ast 21 U/L 12-40 40 Anion Gap 14 mmol/L 8-16 40 Non Crystal Egfr 60 Low >60 40, 41 Crystal Egfr >60 >60 40, 42 CBC With Auto Diff 05/15/2011 WBC 9.5 K/uL 4.1-11.0 40 RBC 4.61 M/uL 4.60-6.10 40 Hemoglobin 15.0 gm/dL 13.5-18.0 40 Hematocrit 43.0 % 41.0-53.0 40 MCV 93.3 fL 80.0-97.0 40 MCH 32.5 pg High 27.0-32.0 40 MCHC 34.9 g/dL 32.0-36.0 40 RDW 12.5 % 11.5-14.5 40 PLT Count 231 K/ul 140-400 40 Neutrophil 54.5 % 35.0-75.0 40 Lymphocyte 34.9 % 16.0-52.0 40 Monocyte 8.2 % 2.0-10.0 40 Eosinophil 1.9 % 0.0-5.0 40 Basophil 0.5 % 0.0-4.0 40 Abs Neutrophils 5.2 K/uL 2.1-8.0 40 Abs Lymphocytes 3.3 K/uL 0.8-5.5 40 Abs Monocytes 0.8 K/uL 0.1-1.0 40 Abs Eosinophils 0.2 K/uL 0.0-0.5 40 Abs Basophils 0.0 K/uL 0.0-0.3 40 Lipid 05/15/2011 Cholesterol 138 mg/dL 50-199 40 Triglycerides 340 mg/dL High 10-150 40 HDL 30 mg/dL 29-71 40, 43 Chol/ HDL Ratio 4.6 ratio 4.0-6.7 40 VLDL 68 mg/dL High 2-29 40 LDL (Calc) 40 mg/dL 20-129 40, 44 Laboratory test finding 05/15/2011 PSA 5.70 ng/mL High 0.00-4.00 40, 45 Rout Urine W/ Micro -RL 05/15/2011 Color YELLOW 40 Appearance CLEAR 40 Spec Grav Urine 1.016 (1.003-1.030) 40 PH Urine 5.5 (5.0-7.5) 40 Leuk Esterase 1+ (Neg) 40 Nitrite Urine NEGATIVE (Neg) 40 Protein Urine NEGATIVE (Neg) 40 Glucose Urine NEGATIVE (Neg) 40 Ketone Urine NEGATIVE (Neg) 40 Urobilinogen 0.2 mg/dL (0-1.0) 40 Bilirubin Urine NEGATIVE (Neg) 40 Blood/HGB Urine TRACE (Neg) 40 Urine WBC 1 /HPF (0-8) 40 Urine RBC 1 /HPF (0-3) 40 Epithelial Cells NEGATIVE /HPF (Neg) 40 Bacteria NEGATIVE /HPF (Neg) 40 Hyaline Casts 0 /LPF (0-5) 40, 46 Laboratory test finding 10/25/2010 Varicella Zost Igg 0.98 ELFA 47, 48 CBC With Auto Diff 06/18/2010 WBC 9.4 K/ul 4.0-10.9 47 RBC 4.17 M/ul Low 4.70-6.10 47 Hemoglobin 13.1 GM/dl Low 13.5-18.0 47 Hematocrit 37.6 % Low 42.0-52.0 47 MCV 90.1 FL 80.0-97.0 47 MCH 31.5 pg High 27.0-31.0 47 MCHC 34.9 g/dL 32.0-36.0 47 RDW 14.0 % 11.5-14.5 47 Platelet Count 216 K/ul 140-440 47 Neutrophils 60.0 % 50-70 47 Lymphocytes 27.3 % 20-44 47 Monocytes 9.2 % High 2-9 47 Eosinophil 3.0 % 0-4 47 Basophil 0.5 % 0-2 47 Absolute Neutrophils 5.6 K/ul 2.05-7.63 47 Absolute Lymphocytes 2.6 K/ul 0.8-4.8 47 Absolute Monocytes 0.9 K/ul 0.1-1.0 47 Absolute Eosinophils 0.3 K/ul 0.1-0.5 47 Absolute Basophils 0.0 K/ul 0.0-0.3 47 Hematology Comment (Comm2) N/A 47 CMP 02/23/2010 Sodium 137 mmol/L 135-144 49 Potassium 4.3 mmol/L 3.6-5.2 49 Chloride 106 mmol/L 97-110 49 Carbon Dioxide 25 mmol/L 23-32 49 Glucose 101 mg/dL 70-105 49 BUN 13 mg/dL 6-22 49 Creatinine 1.1 mg/dL 0.5-1.3 49 BUN/CR 12 Ratio 49 Calcium 9.4 mg/dL 8.6-10.2 49 Total Protein 6.7 g/dL 5.8-7.8 49 Albumin 4.0 g/dL 3.5-4.8 49 Globulin 2.7 g/dL 2.0-3.5 49 A/G Ratio 1.5 Ratio 1.0-2.2 49 Total Bilirubin 0.9 mg/dL 0.3-1.2 49 Alkaline Phosphatase 59 U/L 24-140 49 Alt 50 U/L High 5-45 49 Ast 38 U/L 12-40 49 Anion Gap 10 mmol/L 8-16 49 GFR Calculation > 60 mL/min 60-175 49, 50 GFR For > 60 mL/min 60-175 49, 51 Laboratory test finding 02/23/2010 PSA 3.24 ng/ml 0.00-4.00 49, 52 TSH 2.02 uIU/ml 0.34-5.60 49 Lipid Panel 02/23/2010 Cholesterol 171 mg/dL 50-199 49 Triglycerides 247 mg/dL High 10-150 49 HDL 32 mg/dL 29-71 49, 53 Chol/HDL Ratio 5.3 Ratio 4.0-6.7 49, 54 VLDL 49 mg/dL High 2-29 49 LDL (Calc) 90 mg/dL 20-129 49, 55 CBC With Auto Diff 02/23/2010 WBC 7.3 K/ul 4.0-10.9 49 RBC 4.67 M/ul Low 4.70-6.10 49 Hemoglobin 14.8 GM/dl 13.5-18.0 49 Hematocrit 42.8 % 42.0-52.0 49 MCV 91.6 FL 80.0-97.0 49 MCH 31.7 pg High 27.0-31.0 49 MCHC 34.6 g/dL 32.0-36.0 49 RDW 12.9 % 11.5-14.5 49 Platelet Count 194 K/ul 140-440 49 Neutrophils 51.7 % 50-70 49 Lymphocytes 34.8 % 20-44 49 Monocytes 8.5 % 2-9 49 Eosinophil 4.0 % 0-4 49 Basophil 1.0 % 0-2 49 Absolute Neutrophils 3.8 K/ul 2.05-7.63 49 Absolute Lymphocytes 2.5 K/ul 0.8-4.8 49 Absolute Monocytes 0.6 K/ul 0.1-1.0 49 Absolute Eosinophils 0.3 K/ul 0.1-0.5 49 Absolute Basophils 0.1 K/ul 0.0-0.3 49 Hematology Comment (Comm2) N/A 49 Laboratory test finding 12/26/2008 Urine Culture >100,000 CFU/ML <SEE NOTE > 56 Preliminary Ur. Culture Result GRAM NEGATIVE RO <SEE NOTE> 57 Gram Negative Sensitivity 12/26/2008 Ampicillin (Am) NOT TESTED AGAIN <SEE 58 NOTE> Ampicillin/Sulbactam (Jeromy) NOT TESTED AGAIN <SEE NOTE> 59 Cefazolin (CZ) SENSITIVE Ceftriaxone (Audio Visual [employer] Director SENSITIVE Ciprofloxacin (Cip) SENSITIVE Nitrofurantoin (FT) INTERMEDIATE Trimethoprim/Sulfamethoxazole (SXT) SENSITIVE Laboratory test finding 12/21/2008 PSA 2.99 ng/ml 0.00-4.00 49, 60 TSH 1.41 uIU/ml 0.34-5.60 49 Lipid Panel 12/21/2008 Cholesterol 153 mg/dL 50-199 49 Triglycerides 208 mg/dL High 10-150 49 HDL 34 mg/dL 29-71 49, 61 Chol/HDL Ratio 4.5 Ratio 4.0-6.7 49, 62 VLDL 42 mg/dL High 2-29 49 LDL (Calc) 77 mg/dL 20-129 49, 63 CMP 12/21/2008 Sodium 141 mmol/L 135-144 49 Potassium 4.6 mmol/L 3.6-5.2 49 Chloride 103 mmol/L 97-110 49 Carbon Dioxide 28 mmol/L 23-32 49 Glucose 97 mg/dL 70-105 49 BUN 12 mg/dL 6-22 49 Creatinine 1.1 mg/dL 0.5-1.3 49 BUN/CR 11 Ratio Low 12.0-20.0 49 Calcium 9.4 mg/dL 8.6-10.2 49 Total Protein 6.3 g/dL 5.8-7.8 49 Albumin 4.0 g/dL 3.5-4.8 49 Globulin 2.3 g/dL 2.0-3.5 49 A/G Ratio 1.7 Ratio 1.0-2.2 49 Total Bilirubin 0.8 mg/dL 0.3-1.2 49 Alkaline Phosphatase 64 U/L 24-140 49 Alt 52 U/L High 5-45 49 Ast 33 U/L 12-40 49 Anion Gap 15 mmol/L 8-16 49 GFR Calculation > 60 mL/min 60-175 49, 64 GFR For > 60 mL/min 60-175 49, 65 CBC With Auto Diff 12/21/2008 WBC 8.0 K/ul 4.0-10.9 49 RBC 4.86 M/ul 4.70-6.10 49 Hemoglobin 15.3 GM/dl 13.5-18.0 49 Hematocrit 43.9 % 42.0-52.0 49 MCV 90.3 FL 80.0-97.0 49 MCH 31.6 pg High 27.0-31.0 49 MCHC 35.0 g/dL 32.0-36.0 49 RDW 12.7 % 11.5-14.5 49 Platelet Count 202 K/ul 140-440 49 Neutrophils 52.2 % 50-70 49 Lymphocytes 33.5 % 20-44 49 Monocytes 8.6 % 2-9 49 Eosinophil 5.3 % High 0-4 49 Basophil 0.4 % 0-2 49 Absolute Neutrophils 4.2 K/ul 2.05-7.63 49 Absolute Lymphocytes 2.7 K/ul 0.8-4.8 49 Absolute Monocytes 0.7 K/ul 0.1-1.0 49 Absolute Eosinophils 0.4 K/ul 0.1-0.5 49 Absolute Basophils 0.0 K/ul 0.0-0.3 49 Hematology Comment (Comm2) N/A 49 CMP 08/13/2007 Sodium 138 mmol/L 135-144 66 Potassium 4.8 mmol/L 3.6-5.2 66 Chloride 102 mmol/L 97-110 66 Carbon Dioxide 30 mmol/L 23-33 66 Glucose 97 mg/dL 70-105 66 BUN 12 mg/dL 6-22 66 Creatinine 1.0 mg/dL 0.5-1.3 66 BUN/CR 12 Ratio 12.0-20.0 66 Calcium 9.6 mg/dL 8.6-10.2 66 Total Protein 6.5 g/dL 5.8-7.8 66 Albumin 4.0 g/dL 3.5-4.8 66 Globulin 2.5 g/dL 2.0-3.5 66 A/G Ratio 1.6 Ratio 1.0-2.2 66 Total Bilirubin 0.7 mg/dL 0.3-1.2 66 Alkaline Phosphatase 55 U/L 24-140 66 Alt 33 U/L 4-45 66 Ast 24 U/L 12-40 66 Anion Gap 11 mmol/L 8-16 66 GFR Calculation > 60 mL/min 66, 67 GFR For > 60 mL/min 66, 68 CBC With Auto Diff 08/13/2007 WBC 9.0 K/ul 4.0-10.9 66 RBC 4.98 M/ul 4.70-6.10 66 Hemoglobin 15.9 GM/dl 13.5-18.0 66 Hematocrit 44.3 % 42.0-52.0 66 MCV 88.8 FL 80.0-97.0 66 MCH 31.8 pg High 27.0-31.0 66 MCHC 35.8 g/dL 32.0-36.0 66 RDW 11.5 % 11.5-14.5 66 Platelet Count 235 K/ul 140-440 66 Neutrophils 49.0 % Low 50-70 66 Lymphocytes 37.1 % 20-44 66 Monocytes 8.3 % 2-9 66 Eosinophil 4.9 % High 0-4 66 Basophil 0.7 % 0-2 66 Absolute Neutrophils 4.5 K/ul 2.05-7.63 66 Absolute Lymphocytes 3.3 K/ul 0.8-4.8 66 Absolute Monocytes 0.7 K/ul 0.1-1.0 66 Absolute Eosinophils 0.4 K/ul 0.1-0.5 66 Absolute Basophils 0.1 K/ul 0.1-0.3 66 Lipid Panel 08/13/2007 Cholesterol 173 mg/dL 50-199 66 Triglycerides 293 mg/dL High 10-150 66 HDL 30 mg/dL 29-71 66 Chol/HDL Ratio 5.8 Ratio 66 VLDL 59 mg/dL 66 LDL (Calc) 84 mg/dL 20-129 66 Laboratory test finding 08/13/2007 PSA 2.63 ng/ml 0.00-4.00 66, 69 Laboratory test finding 07/10/2006 PSA 2.33 ng/ml 0.00-4.00 66, 70 Lipid Panel 07/10/2006 Cholesterol 156 mg/dL 50-199 66 Triglycerides 212 mg/dL High 10-150 66 HDL 29 mg/dL 29-71 66 Chol/HDL Ratio 5.4 Ratio 66 VLDL 42 mg/dL 66 LDL (Calc) 85 mg/dL 20-129 66 CMP 07/10/2006 Sodium 138 mmol/L 135-144 66 Potassium 4.2 mmol/L 3.6-5.2 66 Chloride 100 mmol/L 97-110 66 Carbon Dioxide 31 mmol/L 23-33 66 Glucose 89 mg/dL 70-105 66 BUN 12 mg/dL 6-22 66 Creatinine 1.1 mg/dL 0.5-1.3 66 BUN/CR 11 Ratio Low 12.0-20.0 66 Calcium 9.4 mg/dL 8.6-10.2 66 Total Protein 6.7 g/dL 5.8-7.8 66 Albumin 4.1 g/dL 3.5-4.8 66 Globulin 2.6 g/dL 2.0-3.5 66 A/G Ratio 1.6 Ratio 1.0-2.2 66 Total Bilirubin 1.0 mg/dL 0.3-1.2 66 Alkaline Phosphatase 66 U/L 24-140 66 Alt 36 U/L 4-45 66 Ast 30 U/L 12-40 66 Anion Gap 11 mmol/L 8-16 66 GFR White Male 72 66 GFR White Female 53 66 GFR Black Male 87 66 GFR Black Female 64 66 GFR Guidelines 0 66, 71 CBC With Auto Diff 07/10/2006 WBC 8.2 K/ul 4.0-10.9 66 RBC 5.06 M/ul 4.70-6.10 66 Hemoglobin 16.0 GM/dl 13.5-18.0 66 Hematocrit 46.0 % 42.0-52.0 66 MCV 90.8 FL 80.0-97.0 66 MCH 31.6 pg High 27.0-31.0 66 MCHC 34.7 g/dL 32.0-36.0 66 RDW 11.8 % 11.5-14.5 66 Platelet Count 228 K/ul 140-440 66 Neutrophils 49.7 % Low 50-70 66 Lymphocytes 34.8 % 20-44 66 Monocytes 8.5 % 2-9 66 Eosinophil 5.6 % High 0-4 66 Basophil 1.4 % 0-2 66 Absolute Neutrophils 4.0 K/ul 2.05-7.63 66 Absolute Lymphocytes 2.9 K/ul 0.8-4.8 66 Absolute Monocytes 0.7 K/ul 0.1-1.0 66 Absolute Eosinophils 0.5 K/ul 0.1-0.5 66 Absolute Basophils 0.1 K/ul 0.1-0.3 66 CBC 03/29/2005 WBC 8.1 K/ul 4.1-10.9 66 RBC 5.18 M/ul 4.20-6.30 66 Hemoglobin 16.6 GM/dl High 12.0-16.0 66 Hematocrit 48.9 % 41.0-53.0 66 MCV 94.4 FL 80.0-97.0 66 MCH 32.0 pg 26.0-32.0 66 MCHC 33.9 g/dL 31.0-36.0 66 RDW 11.8 % 11.5-14.5 66 Platelet Count 227 K/ul 140-440 66 Neutrophils 46.2 % Low 50-70 66 Lymphocytes 38.5 % 20-44 66 Monocytes 7.9 % 2-9 66 Eosinophil 6.5 % High 0-4 66 Basophil 0.9 % 0-2 66 Absolute Neutrophils 3.8 K/ul 2.05-7.63 66 Absolute Lymphocytes 3.1 K/ul 0.8-4.8 66 Absolute Monocytes 0.6 K/ul 0.1-1.0 66 Absolute Eosinophils 0.5 K/ul 0.1-0.5 66 Absolute Basophils 0.1 K/ul 0.1-0.3 66 Laboratory test finding 03/29/2005 PSA 1.93 ng/ml 0.00-4.00 66, 72 TSH 2.06 uIU/ml 0.50-6.00 66 Basic (BMP) 03/29/2005 Sodium 137 mmol/L 135-144 66 Potassium 4.3 mmol/L 3.6-5.2 66 Chloride 99 mmol/L 97-110 66 Carbon Dioxide 31 mmol/L 22-32 66 Glucose 90 mg/dL 70-105 66 BUN 11 mg/dL 6-22 66 Creatinine 1.0 mg/dL 0.5-1.3 66 BUN/CR 11 Ratio Low 12.0-20.0 66 Anion Gap 11 mmol/L 8-16 66 Calcium 9.1 mg/dL 8.6-10.2 66 Lipid TX Panel 03/29/2005 Ast 27 U/L 12-40 66 Alt 42 U/L 4-45 66 Cholesterol 158 mg/dL 50-199 66 Triglycerides 217 mg/dL High 10-150 66 HDL 31 mg/dL 29-71 66 LDL (Calc) 84 mg/dL 20-100 66 Chol/HDL Ratio 5.1 Ratio 66 VLDL 43 mg/dL 66 Laboratory test finding 03/30/2004 PSA 1.77 ng/ml 0.00-4.00 73 CMP 03/30/2004 Sodium 136 mmol/L 135-145 Potassium 3.8 mmol/L 3.4-5.3 Chloride 101 mmol/L 98-111 Carbon Dioxide 27 mmol/L 22-33 Glucose 92 mg/dL 70-105 BUN 13 mg/dL 6-26 Creatinine 1.1 mg/dL 0.5-1.5 BUN/CR 12 Ratio 12.0-20.0 Calcium 9.2 mg/dL 8.6-10.3 Total Protein 7.5 g/dL 6.2-8.3 Albumin 4.2 g/dL 3.5-5.0 Globulin 3.3 g/dL 2.7-4.3 A/G Ratio 1.3 Ratio 1.0-2.2 Total Bilirubin 0.7 mg/dL 0.1-1.3 Ast 25 U/L 8-42 Alt 32 U/L 3-42 Alkaline Phosphatase 75 U/L 24-140 Anion Gap 12 mmol/L 10-20 Lipid Panel 03/30/2004 Cholesterol 175 mg/dL 50-199 Triglycerides 362 mg/dL High 30-200 HDL 34 mg/dL 29-71 Chol/HDL Ratio 5.2 Ratio VLDL 72 mg/dL LDL (Calc) Triglyceride leela <SEE NOTE> mg/dL 20-129 74 Laboratory test finding 03/30/2004 Direct LDL 92 mg/dL 20-129 CBC 02/11/2003 WBC 7.5 K/ul 4.1-10.9 RBC 5.18 M/ul 4.2-6.3 Hemoglobin 16.6 GM/dl High 12.0-16.0 Hematocrit 48.0 % 37.0-51.0 MCV 92.5 FL 80-97 MCH 32.0 pg 26.0-32.0 MCHC 34.5 g/dL 31.0-36.0 RDW 11.7 % 11.5-14.5 Platelet Count 200 K/ul 140-440 Neutrophils 50.1 % 50-70 Lymphocytes 36.9 % 20-44 Monocytes 7.2 % 2-9 Eosinophil 4.9 % High 0-4 Basophil 0.9 % 0-2 Absolute Neutrophils 3.7 K/ul 2.05-7.63 Absolute Lymphocytes 2.8 K/ul 0.8-4.8 Absolute Monocytes 0.5 K/ul 0.1-1.0 Absolute Eosinophils 0.4 K/ul 0.1-0.5 Absolute Basophils 0.1 K/ul 0.1-0.3 CMP 02/11/2003 Sodium 139 mmol/L 135-145 Potassium 4.1 mmol/L 3.4-5.3 Chloride 104 mmol/L 98-111 Carbon Dioxide 28 mmol/L 22-33 Glucose 100 mg/dL 70-105 BUN 14 mg/dL 6-26 Creatinine 1.1 mg/dL 0.5-1.5 BUN/CR 13 Ratio 12.0-20.0 Calcium 9.3 mg/dL 8.6-10.3 Total Protein 7.1 g/dL 6.2-8.3 Albumin 4.3 g/dL 3.5-5.0 Globulin 2.8 g/dL 2.7-4.3 A/G Ratio 1.5 Ratio 1.0-2.2 Total Bilirubin 0.8 mg/dL 0.1-1.3 Ast 24 U/L 8-42 Alt 27 U/L 3-42 Alkaline Phosphatase 69 U/L 24-140 Anion Gap 11 mmol/L 10-20 Lipid Panel 02/11/2003 Cholesterol 166 mg/dL 50-199 Triglycerides 323 mg/dL High 30-200 HDL 32 mg/dL 29-71 Chol/HDL Ratio 5.2 Ratio VLDL 65 mg/dL LDL (Calc) Triglyceride leela <SEE NOTE> mg/dL 20-129 75 Laboratory test finding 02/11/2003 PSA 1.97 ng/ml 0.00-4.00 76 Direct LDL 79 mg/dL 20-129 CMP 03/26/2002 Sodium 140 mmol/L 137-145 Potassium 3.7 mmol/L 3.6-5.0 Chloride 101 mmol/L 98-107 Carbon Dioxide 29 mmol/L 22-30 Glucose 87 mg/dL 75-110 BUN 12 mg/dL 9-21 Creatinine, Serum 1.0 mg/dL 0.8-1.5 BUN/CR Ratio 11.5 Ratio Low 12-20 Calcium 9.2 mg/dL 8.7-10.5 Total Protein 7.3 g/dL 6.3-8.2 Albumin 4.4 g/dL 3.5-5.0 Globulin 2.9 g/dL 2.7-4.3 A/G Ratio 1.5 1.0-2.2 Total Bilirubin 0.5 mg/dL 0.2-1.3 Ast 39 U/L 17-59 Alt 49 U/L 21-72 Alkaline Phosphatase 85 U/L 38-126 Lipid Panel 03/26/2002 Cholesterol 172 mg/dL 50-199 Triglycerides 283 mg/dL High 30-249 HDL Cholesterol 32 mg/dL 29-67 LDL(Calc) Triglyceride leela <SEE NOTE> mg/dL 20-129 77 Chol/HDL Ratio 5.3 78 VLDL Cholesterol 57 mg/dL Laboratory test finding 03/26/2002 Direct LDL 93 mg/dL 20-129 CBC 03/26/2002 WBC 8.8 K/ul 4.1-10.9 RBC 5.17 M/ul 4.2-6.3 Hemoglobin 16.4 GM/dl High 12.0-16.0 Hematocrit 48.4 % 37.0-51.0 MCV 93.6 FL 80-97 MCH 31.7 pg 26.0-32.0 MCHC 33.9 g/dL 31.0-36.0 RDW 11.7 % 11.5-14.5 Platelet Count 239 K/ul 140-440 Neutrophils 56.6 % 50-70 Lymphocytes 30.8 % 20-44 Monocytes 8.5 % 2-9 Eosinophil 3.4 % 0-4 Basophil 0.7 % 0-2 Absolute Neutrophils 5.0 K/ul 2.05-7.63 Absolute Lymphocytes 2.7 K/ul 0.8-4.8 Absolute Monocytes 0.7 K/ul 0.1-1.0 Absolute Eosinophils 0.3 K/ul 0.1-0.5 Absolute Basophils 0.1 K/ul 0.1-0.3 Laboratory test finding 03/26/2002 PSA 1.91 ng/ml 0.00-4.00 79 1 Concerning GFR Guidelines for Americans: Normal function or mild renal disease, if clinically at risk: >/=60 mL/min Moderately decreased: 30-59 Severely decreased: 15-29 Renal failure: <15 2 Concerning GFR Guidelines: Normal function or mild renal disease, if clinically at risk: >/=60 mL/min Moderately decreased: 30-59 Severely decreased: 15-29 Renal failure: <15 Glomerular Filtration Rate (GFR) is estimated based on the MDRD equation, which assumes a steady state for creatinine as recommended by the National Kidney Disease Education Program in conjunction with the National Institutes of Health and the National Kidney Foundation. Clinical conditions in which it may be necessary to measure GFR by using clearance methods include extremes of age and body size, severe malnutrition or obesity, diseases of skeletal muscle, paraplegia or quadriplegia, vegetarian diet, rapidly changing kidney function, and calculation of the dose of potentially toxic drugs that are excreted by the kidneys. 3 Per NCEP ATP III Guidelines: Results lower than 40 mg/dL are suggestive of increased risk for coronary artery disease. Results > or=to 60 mg/dL are considered a negative risk factor. 4 Per NCEP ATP III Guidelines: Normal Population <130 Patients with medical conditions: CHD/DM Optimal: <100 Borderline high: 130-159 High: 160-189 Very high: >189 5 Beginning 08/11/06 PSA values assayed at [facility] uses chemiluminescence methodology manufactured by [employer] for use on the DXI analyzer. Values obtained with different assay methods or kits can not be used interchangeably. Serum PSA measurement is not an absolute test for malignancy. The PSA value should be used in conjunction with information available from clinical evaluation and other diagnostic procedures. 6 Per NCEP ATP III Guidelines: Results lower than 40 mg/dL are suggestive of increased risk for coronary artery disease. Results > or=to 60 mg/dL are considered a negative risk factor. 7 Per NCEP ATP III Guidelines: Normal Population <130 Patients with medical conditions: CHD/DM Optimal: <100 Borderline high: 130-159 High: 160-189 Very high: >189 8 Concerning GFR Guidelines for Americans: Normal function or mild renal disease, if clinically at risk: >/=60 mL/min Moderately decreased: 30-59 Severely decreased: 15-29 Renal failure: <15 9 Concerning GFR Guidelines: Normal function or mild renal disease, if clinically at risk: >/=60 mL/min Moderately decreased: 30-59 Severely decreased: 15-29 Renal failure: <15 Glomerular Filtration Rate (GFR) is estimated based on the MDRD equation, which assumes a steady state for creatinine as recommended by the National Kidney Disease Education Program in conjunction with the National Institutes of Health and the National Kidney Foundation. Clinical conditions in which it may be necessary to measure GFR by using clearance methods include extremes of age and body size, severe malnutrition or obesity, diseases of skeletal muscle, paraplegia or quadriplegia, vegetarian diet, rapidly changing kidney function, and calculation of the dose of potentially toxic drugs that are excreted by the kidneys. 10 Beginning 08/11/06 PSA values assayed at [facility] uses an EIA methodology manufactured by [employer] for use on the DXI analyzer. Values obtained with different assay methods or kits can not be used interchangeably. Serum PSA measurement is not an absolute test for malignancy. The PSA value should be used in conjunction with information available from clinical evaluation and other diagnostic procedures. 11 This sample is drawn by:JOSUÉ 12 Concerning GFR Guidelines for Americans: Normal function or mild renal disease, if clinically at risk: >/=60 mL/min Moderately decreased: 30-59 Severely decreased: 15-29 Renal failure: <15 13 Concerning GFR Guidelines: Normal function or mild renal disease, if clinically at risk: >/=60 mL/min Moderately decreased: 30-59 Severely decreased: 15-29 Renal failure: <15 Glomerular Filtration Rate (GFR) is estimated based on the MDRD equation, which assumes a steady state for creatinine as recommended by the National Kidney Disease Education Program in conjunction with the National Institutes of Health and the National Kidney Foundation. Clinical conditions in which it may be necessary to measure GFR by using clearance methods include extremes of age and body size, severe malnutrition or obesity, diseases of skeletal muscle, paraplegia or quadriplegia, vegetarian diet, rapidly changing kidney function, and calculation of the dose of potentially toxic drugs that are excreted by the kidneys. 14 This sample is drawn by:MADDIE. 15 Concerning GFR Guidelines for Americans: Normal function or mild renal disease, if clinically at risk: >/=60 mL/min Moderately decreased: 30-59 Severely decreased: 15-29 Renal failure: <15 16 Concerning GFR Guidelines: Normal function or mild renal disease, if clinically at risk: >/=60 mL/min Moderately decreased: 30-59 Severely decreased: 15-29 Renal failure: <15 Glomerular Filtration Rate (GFR) is estimated based on the MDRD equation, which assumes a steady state for creatinine as recommended by the National Kidney Disease Education Program in conjunction with the National Institutes of Health and the National Kidney Foundation. Clinical conditions in which it may be necessary to measure GFR by using clearance methods include extremes of age and body size, severe malnutrition or obesity, diseases of skeletal muscle, paraplegia or quadriplegia, vegetarian diet, rapidly changing kidney function, and calculation of the dose of potentially toxic drugs that are excreted by the kidneys. 17 Per NCEP ATP III Guidelines: Results lower than 40 mg/dL are suggestive of increased risk for coronary artery disease. Results > or=to 60 mg/dL are considered a negative risk factor. 18 Per NCEP ATP III Guidelines: Normal Population <130 Patients with medical conditions: CHD/DM Optimal: <100 Borderline high: 130-159 High: 160-189 Very high: >189 19 Beginning 08/11/06 PSA values assayed at [facility] uses an EIA methodology manufactured by [employer] for use on the DXI analyzer. Values obtained with different assay methods or kits can not be used interchangeably. Serum PSA measurement is not an absolute test for malignancy. The PSA value should be used in conjunction with information available from clinical evaluation and other diagnostic procedures. 20 This sample is drawn by:CT 21 Concerning GFR Guidelines for Americans: Normal function or mild renal disease, if clinically at risk: >/=60 mL/min Moderately decreased: 30-59 Severely decreased: 15-29 Renal failure: <15 22 Concerning GFR Guidelines: Normal function or mild renal disease, if clinically at risk: >/=60 mL/min Moderately decreased: 30-59 Severely decreased: 15-29 Renal failure: <15 Glomerular Filtration Rate (GFR) is estimated based on the MDRD equation, which assumes a steady state for creatinine as recommended by the National Kidney Disease Education Program in conjunction with the National Institutes of Health and the National Kidney Foundation. Clinical conditions in which it may be necessary to measure GFR by using clearance methods include extremes of age and body size, severe malnutrition or obesity, diseases of skeletal muscle, paraplegia or quadriplegia, vegetarian diet, rapidly changing kidney function, and calculation of the dose of potentially toxic drugs that are excreted by the kidneys. 23 Per NCEP ATP III Guidelines: Results lower than 40 mg/dL are suggestive of increased risk for coronary artery disease. Results > or=to 60 mg/dL are considered a negative risk factor. 24 Per NCEP ATP III Guidelines: Normal Population <130 Patients with medical conditions: CHD/DM Optimal: <100 Borderline high: 130-159 High: 160-189 Very high: >189 25 FAX STAT TO [facility] FAX#[phone] This sample is drawn by :CT 26 Concerning GFR Guidelines: Normal function or mild renal disease, if clinically at risk: >/=60 mL/min Moderately decreased: 30-59 Severely decreased: 15-29 Renal failure: <15 Glomerular Filtration Rate (GFR) is estimated based on the MDRD equation, which assumes a steady state for creatinine as recommended by the National Kidney Disease Education Program in conjunction with the National Institutes of Health and the National Kidney Foundation. Clinical conditions in which it may be necessary to measure GFR by using clearance methods include extremes of age and body size, severe malnutrition or obesity, diseases of skeletal muscle, paraplegia or quadriplegia, vegetarian diet, rapidly changing kidney function, and calculation of the dose of potentially toxic drugs that are excreted by the kidneys. 27 Concerning GFR Guidelines for Americans: Normal function or mild renal disease, if clinically at risk: >/=60 mL/min Moderately decreased: 30-59 Severely decreased: 15-29 Renal failure: <15 28 This sample is drawn by:MM 29 Microbiology results SOURCE [facility] COUNT 75,000 CFU/ML FINAL RESULT Enterococcus faecalis (Isolate 1) Sensitivity Analysis Isolate 1 --------- AMPICILLIN <=2 S BENZYLPENICILLIN 2 S CIPROFLOXACIN <=0.5 S NITROFURANTOIN <=16 S VANCOMYCIN 2 S S=Sensitive;I=Indeterminate;R=Resistant 30 Unless otherwise specified, testing performed [facility] [place] [address] 31 Unless otherwise specified, testing performed by [facility] [place] [address] 32 Microbiology results SOURCE URINE FINAL RESULT Mixed urethral ras consistent with contamination. No further workup. 33 This sample is drawn by:CT 34 Concerning GFR Guidelines for Americans: Normal function or mild renal disease, if clinically at risk: >/=60 mL/min Moderately decreased: 30-59 Severely decreased: 15-29 Renal failure: <15 35 Concerning GFR Guidelines: Normal function or mild renal disease, if clinically at risk: >/=60 mL/min Moderately decreased: 30-59 Severely decreased: 15-29 Renal failure: <15 Glomerular Filtration Rate (GFR) is estimated based on the MDRD equation, which assumes a steady state for creatinine as recommended by the National Kidney Disease Education Program in conjunction with the National Institutes of Health and the National Kidney Foundation. Clinical conditions in which it may be necessary to measure GFR by using clearance methods include extremes of age and body size, severe malnutrition or obesity, diseases of skeletal muscle, paraplegia or quadriplegia, vegetarian diet, rapidly changing kidney function, and calculation of the dose of potentially toxic drugs that are excreted by the kidneys. 36 Per NCEP ATP III Guidelines: Results lower than 40 mg/dL are suggestive of increased risk for coronary artery disease. Results > or=to 60 mg/dL are considered a negative risk factor. 37 Per NCEP ATP III Guidelines: Optimal: <100 Near optimal: 100-129 Borderline high: 130-159 High: 160-189 Very high: >189 38 Beginning 08/11/06 PSA values assayed at [facility] uses an EIA methodology manufactured by [employer] for use on the DXI analyzer. Values obtained with different assay methods or kits can not be used interchangeably. Serum PSA measurement is not an absolute test for malignancy. The PSA value should be used in conjunction with information available from clinical evaluation and other diagnostic procedures. 39 % FREE PSA PROBABILITY OF CANCER 0 - 10% 56% 10 - 15% 28% 15 - 20% 20% 20 - 25% 16% GREATER THAN 25% 8% THE FREE PSA PERCENTAGE IS AN AID IN DISTINGUISHING PROSTATE CANCER FROM BENIGN PROSTATIC CONDITIONS IN MEN AGE 50 AND OLDER WITH A TOTAL PSA BETWEEN 3 AND 10 NG/ML AND NEGATIVE DIGITAL RECTAL EXAMINATION FINDINGS. PROSTATIC BIOPSY IS REQUIRED FOR THE DIAGNOSIS OF CANCER. (See: GODWIN 1998; 279: [id number]) METHOD USED TO ASSAY BOTH FREE PSA AND TOTAL PSA IS [email or web address] IMMUNO[employer]SA[employer] SYSTEM [employer] FREE PSA AND TOTAL PSA. RESULTS SHOULD NOT BE INTERPRETED ABSOLUTE EVIDENCE FOR THE PRESENCE OR ABSENCE OF MALIGNANT DISEASE. VALUES OBTAINED WITH DIFFERENT ASSAY METHODS OR KITS CANNOT BE USED INTERCHANGEABLY. Unless otherwise specified, testing performed by [facility] [address] [place] [id number] This sample is drawn by:[facility] 41 Concerning GFR Guidelines: Normal function or mild renal disease, if clinically at risk: >/=60 mL/min Moderately decreased: 30-59 Severely decreased: 15-29 Renal failure: <15 Glomerular Filtration Rate (GFR) is estimated based on the MDRD equation, which assumes a steady state for creatinine as recommended by the National Kidney Disease Education Program in conjunction with the National Institutes of Health and the National Kidney Foundation. Clinical conditions in which it may be necessary to measure GFR by using clearance methods include extremes of age and body size, severe malnutrition or obesity, diseases of skeletal muscle, paraplegia or quadriplegia, vegetarian diet, rapidly changing kidney function, and calculation of the dose of potentially toxic drugs that are excreted by the kidneys. 42 Concerning GFR Guidelines for Americans: Normal function or mild renal disease, if clinically at risk: >/=60 mL/min Moderately decreased: 30-59 Severely decreased: 15-29 Renal failure: <15 43 Per NCEP ATP III Guidelines: Results lower than 40 mg/dL are suggestive of increased risk for coronary artery disease. Results > or=to 60 mg/dL are considered a negative risk factor. 44 Per NCEP ATP III Guidelines: Optimal: <100 Near optimal: 100-129 Borderline high: 130-159 High: 160-189 Very high: >189 45 Beginning 08/11/06 PSA values assayed at [facility] uses an EIA methodology manufactured by [employer] for use on the DXI analyzer. Values obtained with different assay methods or kits can not be used interchangeably. Serum PSA measurement is not an absolute test for malignancy. The PSA value should be used in conjunction with information available from clinical evaluation and other diagnostic procedures. 46 Unless otherwise specified, testing performed [place] [address] 47 This sample is drawn by:[facility] 48 VARICELLA ZOSTER INTERPRETATION: NEGATIVE <0.60 ELFA UNITS BORDERLINE 0.60 - 0.89 ELFA UNITS LOW LEVEL 0.90 - 1.40 ELFA UNITS MED. LEVEL 1.41 - 3.49 ELFA UNITS HIGH LEVEL >3.49 ELFA UNITS VALUES OF 0.90 OR GREATER INDICATE PAST INFECTION OR IMMUNIZATION. BORDERLINE RESULTS ARE CONFIRMED IN DUPLICATE. Unless otherwise specified, testing performed by [facility] [address] [place] [address] 49 FASTING This sample is drawn by:CT 50 Concerning GFR GUIDELINES: Normal Function or Mild Renal Disease, if clinically at risk: >/=60mL/min Moderately decreased: 30-59 Severely decreased: 15-29 Renal Failure: <15 Glomerular Filtration Rate (GFR) is estimated based on the MDRD equation, which assumes a steady state for creatinine as recommended by the National Kidney Disease Education Program in conjunction with the National Institutes of Health and the National Kidney Foundation. Clinical conditions in which it may be necessary to measure GFR by using clearance methods include extremes of age and body size, severe malnutrition or obesity, diseases of skeletal muscle, paraplegia or quadriplegia, vegetarian diet, rapidly changing kidney function, and calculation of the dose of potentially toxic drugs that are excreted by the kidneys. 51 Concerning GFR GUIDELINES: Normal Function or Mild Renal Disease, if clinically at risk: >/=60mL/min Moderately decreased: 30-59 Severely decreased: 15-29 Renal Failure: <15 52 BEGINNING 08/11/06, PSA VALUES ASSAYED AT [facility] USES AN EIA METHODOLOGY MANUFACTURED BY TAMIKO Shaka FOR USE ON THE DXI ANALYZER. VALUES OBTAINED WITH DIFFERENT ASSAY METHODS OR KITS CAN NOT BE USED INTERCHANGEABLY. SERUM PSA MEASUREMENT IS NOT AN ABSOLUTE TEST FOR MALIGNANCY, THE PSA VALUE SHOULD BE USED IN CONJUNCTION WITH INFORMATION AVAILABLE FROM CLINICAL EVALUATION AND OTHER DIAGNOSTIC PROCEDURES. 53 PER NCEP ATP III GUIDELINES: RESULTS LOWER THAN 40 MG/DL ARE SUGGESTIVE OF INCREASED RISK FOR CORONARY ARTERY DISEASE. RESULTS > OR=TO 60 MG/DL ARE CONSIDERED A NEGATIVE RISK FACTOR. 54 INTERPRETATION OF CHOL-HDL RATIO CHD RISK FEMALE MALE VERY HIGH >8.3 >14.3 HIGH 5.6 - 8.3 6.7 - 14.3 AVERAGE 3.7 - 5.6 4.0 - 6.7 BELOW AVERAGE 2.5 - 3.7 2.7 - 4.0 PROTECTED <2.5 <2.7 55 PER NCEP ATP III GUIDELINES: OPTIMAL: <100 NEAR OPTIMAL: 100 - 129 BORDERLINE HIGH: 130 - 159 HIGH: 160 - 189 VERY HIGH: >189 56 >100,000 CFU/ML CITROBACTER KOSERI 57 GRAM NEGATIVE MIRIAM ISOLATED, ID & SENSITIVITY TO FOLLOW 58 NOT TESTED AGAINST THIS ORGANISM 59 NOT TESTED AGAINST THIS ORGANISM 60 BEGINNING 08/11/06, PSA VALUES ASSAYED AT [facility] USES AN EIA METHODOLOGY MANUFACTURED BY TAMIKO Shaka FOR USE ON THE DXI ANALYZER. VALUES OBTAINED WITH DIFFERENT ASSAY METHODS OR KITS CAN NOT BE USED INTERCHANGEABLY. SERUM PSA MEASUREMENT IS NOT AN ABSOLUTE TEST FOR MALIGNANCY, THE PSA VALUE SHOULD BE USED IN CONJUNCTION WITH INFORMATION AVAILABLE FROM CLINICAL EVALUATION AND OTHER DIAGNOSTIC PROCEDURES. 61 PER NCEP ATP III GUIDELINES: RESULTS LOWER THAN 40 MG/DL ARE SUGGESTIVE OF INCREASED RISK FOR CORONARY ARTERY DISEASE. RESULTS > OR=TO 60 MG/DL ARE CONSIDERED A NEGATIVE RISK FACTOR. 62 INTERPRETATION OF CHOL-HDL RATIO CHD RISK FEMALE MALE VERY HIGH >8.3 >14.3 HIGH 5.6 - 8.3 6.7 - 14.3 AVERAGE 3.7 - 5.6 4.0 - 6.7 BELOW AVERAGE 2.5 - 3.7 2.7 - 4.0 PROTECTED <2.5 <2.7 63 PER NCEP ATP III GUIDELINES: OPTIMAL: <100 NEAR OPTIMAL: 100 - 129 BORDERLINE HIGH: 130 - 159 HIGH: 160 - 189 VERY HIGH: >189 64 Concerning GFR GUIDELINES: Normal Function or Mild Renal Disease, if clinically at risk: >/=60mL/min Moderately decreased: 30-59 Severely decreased: 15-29 Renal Failure: <15 Glomerular Filtration Rate (GFR) is estimated based on the MDRD equation, which assumes a steady state for creatinine as recommended by the National Kidney Disease Education Program in conjunction with the National Institutes of Health and the National Kidney Foundation. Clinical conditions in which it may be necessary to measure GFR by using clearance methods include extremes of age and body size, severe malnutrition or obesity, diseases of skeletal muscle, paraplegia or quadriplegia, vegetarian diet, rapidly changing kidney function, and calculation of the dose of potentially toxic drugs that are excreted by the kidneys. 65 Concerning GFR GUIDELINES: Normal Function or Mild Renal Disease, if clinically at risk: >/=60mL/min Moderately decreased: 30-59 Severely decreased: 15-29 Renal Failure: <15 66 FASTING 67 Concerning GFR GUIDELINES: Normal Function or Mild Renal Disease, if clinically at risk: >/=60mL/min Moderately decreased: 30-59 Severely decreased: 15-29 Renal Failure: <15 Glomerular Filtration Rate (GFR) is estimated based on the MDRD equation, which assumes a steady state for creatinine as recommended by the National Kidney Disease Education Program in conjunction with the National Institutes of Health and the National Kidney Foundation. Clinical conditions in which it may be necessary to measure GFR by using clearance methods include extremes of age and body size, severe malnutrition or obesity, diseases of skeletal muscle, paraplegia or quadriplegia, vegetarian diet, rapidly changing kidney function, and calculation of the dose of potentially toxic drugs that are excreted by the kidneys. 68 Concerning GFR GUIDELINES: Normal Function or Mild Renal Disease, if clinically at risk: >/=60mL/min Moderately decreased: 30-59 Severely decreased: 15-29 Renal Failure: <15 69 BEGINNING 08/11/06, PSA VALUES ASSAYED AT [facility] USES AN EIA METHODOLOGY MANUFACTURED BY [employer] FOR USE ON THE DXI ANALYZER. VALUES OBTAINED WITH DIFFERENT ASSAY METHODS OR KITS CAN NOT BE USED INTERCHANGEABLY. SERUM PSA MEASUREMENT IS NOT AN ABSOLUTE TEST FOR MALIGNANCY, THE PSA VALUE SHOULD BE USED IN CONJUNCTION WITH INFORMATION AVAILABLE FROM CLINICAL EVALUATION AND OTHER DIAGNOSTIC PROCEDURES. 70 PSA VALUES ASSAYED AT [facility] USES AN EIA METHODOLOGY MANUFACTURED BY [employer] FOR USE ON THE NEXIA ANALYZER. VALUES OBTAINED WITH DIFFERENT ASSAY METHODS OR KITS CAN NOT BE USED INT ERCHANGEABLY. SERUM PSA MEASUREMENT IS NOT AN ABSOLUTE TEST FOR MALIGNANCY, THE PSA VALUE SHOULD BE USED IN CONJUNCTION WITH INFORMATION AVAILABLE FROM CLINICAL EVALUATION AND OTHER DIAGNOSTIC PROCEDURES. 71 Normal Function or Mild Renal Disease, if clinically at risk: >/=60 mL/min Moderately decreased: 30-59 Severely decreased: 15-29 Renal Failure: <15 Glomerular Filtration Rate (GFR) is estimated based on the MDRD equation, which assumes a steady state for creatinine as recommended by the National Kidney Disease Education Program in conjunction with the National Institutes of Health and the National Kidney Foundation. Clinical conditions in which it may be necessary to measure GFR by using clearance methods include extremes of age and body size, severe malnutrition or obesity, diseases of skeletal muscle, paraplegia or quadriplegia, vegetarian diet, rapidly changing kidney function, and calculation of the dose of potentially toxic drugs that are excreted by the kidneys. 72 PSA VALUES ASSAYED AT [facility] USES AN EIA METHODOLOGY MANUFACTURED BY [employer] FOR USE ON THE NEXIA ANALYZER. VALUES OBTAINED WITH DIFFERENT ASSAY METHODS OR KITS CAN NOT BE USED INT ERCHANGEABLY. SERUM PSA MEASUREMENT IS NOT AN ABSOLUTE TEST FOR MALIGNANCY, THE PSA VALUE SHOULD BE USED IN CONJUNCTION WITH INFORMATION AVAILABLE FROM CLINICAL EVALUATION AND OTHER DIAGNOSTIC PROCEDURES. 73 PSA VALUES ASSAYED AT [facility] USES AN EIA METHODOLOGY MANUFACTURED BY [employer] FOR USE ON THE NEXIA ANALYZER. VALUES OBTAINED WITH DIFFERENT ASSAY METHODS OR KITS CAN NOT BE USED INT ERCHANGEABLY. SERUM PSA MEASUREMENT IS NOT AN ABSOLUTE TEST FOR MALIGNANCY, THE PSA VALUE SHOULD BE USED IN CONJUNCTION WITH INFORMATION AVAILABLE FROM CLINICAL EVALUATION AND OTHER DIAGNOSTIC PROCEDURES. 74 Triglyceride value >250 mg/dl, see Direct LDL result 75 Triglyceride value >250 mg/dl, see Direct LDL result 76 PSA VALUES ASSAYED AT [facility] USES AN EIA METHODOLOGY MANUFACTERED BY [employer] FOR USE ON THE NEXIA ANALYZER. VALUES OBTAINED WITH DIFFERENT ASSAY METHODS OR KITS CAN NOT BE USED INT ERCHANGEABLY. SERUM PSA MEASUREMENT IS NOT AN ABSOLUTE TEST FOR MALIGNANCY, THE PSA VALUE SHOULD BE USED IN CONJUNCTION WITH INFORMATION AVAILABLE FROM CLINICAL EVALUATION AND OTHER DIAGNOSTIC PROCEDURES. 77 Triglyceride value >250 mg/dl,see Direct LDL result 78 Normal Range: Male: <4.98 Female: <4.45 79 PSA VALUES ASSAYED AT [facility] USES AN EIA METHODOLOGY MANUFACTERED BY [employer] FOR USE ON THE NEXIA ANALYZER. VALUES OBTAINED WITH DIFFERENT ASSAY METHODS OR KITS CAN NOT BE USED INT ERCHANGEABLY. SERUM PSA MEASUREMENT IS NOT AN ABSOLUTE TEST FOR MALIGNANCY, THE PSA VALUE SHOULD BE USED IN CONJUNCTION WITH INFORMATION AVAILABLE FROM CLINICAL EVALUATION AND OTHER DIAGNOSTIC PROCEDURES. PSA VALUES ASSAYED AT [facility] USES AN EIA METHODOLOGY MANUFACTERED BY [employer] FOR USE ON THE NEXIA ANALYZER. VALUES OBTAINED WITH DIFFERENT ASSAY METHODS OR KITS CAN NOT BE USED INT ERCHANGEABLY. SERUM PSA MEASUREMENT IS NOT AN ABSOLUTE TEST FOR MALIGNANCY, THE PSA VALUE SHOULD BE USED IN CONJUNCTION WITH INFORMATION AVAILABLE FROM CLINICAL EVALUATION AND OTHER DIAGNOSTIC PROCEDURES. Procedures Date CPT Code Description Status 10/23/2017 25913 Electrocardiogram Complete Completed 05/16/2016 28549 Electrocardiogram Complete Completed 06/01/2015 04829 Electrocardiogram Complete Completed 05/16/2015 31139 Destruction Lesion/Any Method Premalignant Lesions Completed 05/16/2015 34855 Destruc Any Method 2-14 Lesions,Each Pre Malig Completed 05/16/2015 13479 Destruc Any Method 2-14 Lesions,Each Pre Malig Completed 05/16/2015 69837 Destruc Any Method 2-14 Lesions,Each Pre Malig Completed 05/16/2015 51234 Destruc Any Method 2-14 Lesions,Each Pre Malig Completed 05/16/2015 33321 Destruction Benign Lesions Other Than Skin Tags Up To Completed 14 Lesions 05/30/2014 30511 Electrocardiogram Complete Completed 04/20/2014 01253 Destruction Benign Lesions Other Than Skin Tags Up To Completed 14 Lesions 04/20/2014 20686 Destruc Any Method 2-14 Lesions,Each Pre Malig Completed 04/20/2014 53823 Destruc Any Method 2-14 Lesions,Each Pre Malig Completed 04/20/2014 87034 Destruc Any Method 2-14 Lesions,Each Pre Malig Completed 04/20/2014 78363 Destruction Lesion/Any Method Premalignant Lesions Completed 02/17/2014 99774 Destruc Any Method 2-14 Lesions,Each Pre Malig Completed 02/17/2014 11789 Destruction Lesion/Any Method Premalignant Lesions Completed 05/31/2013 44731 Electrocardiogram Complete Completed 11/25/2012 48908 Electrocardiogram Complete Completed 05/25/2012 22187 Electrocardiogram Complete Completed 11/14/2011 Colonoscopy Completed 05/20/2011 52768 Electrocardiogram Complete Completed 03/16/2011 Colonoscopy Completed 10/01/2010 17440 X-Ray Knee Complete W/Obliques & Tunnel And/Or Standing Completed Views 02/21/2010 93829 Electrocardiogram Complete Completed 06/21/2009 81548 Electrocardiogram Complete Completed 12/26/2008 65632 Electrocardiogram Complete Completed 11/23/2008 75791 Electrocardiogram Complete Completed 08/12/2007 30574 Electrocardiogram Complete Completed 07/09/2006 86334 Electrocardiogram Complete Completed 04/03/2005 01191 Electrocardiogram Complete Completed 03/30/2004 13407 Electrocardiogram Complete Completed 03/30/2003 76741 Electrocardiogram Complete Completed 03/26/2002 13448 Electrocardiogram Complete Completed Encounters Type Date Location Provider CPT E/M Dx Office Visit 11/19/2016 8:40[place] [address] I10 E78.2 N40.1 H40.009 Z72.0 Office Visit 05/16/2016 8:20[place] [address] Z00.00 I10 E78.2 H93.13 Office Visit 12/29/2015 2:40p Kalpana Duran, RN [place] [employer] 96126 M25.561 Office Visit 06/01/2015 2:00[place] [address] N40.1 L57.0 E78.2 I10 Z72.0 H40.9 Z00.01 H91.91 Office Visit 09/12/2014 9:20[place] [address] V72.84 Office Visit 07/04/2014 1:40p [place] [address] 372.00 Office Visit 05/30/2014 9:00[place] [address] 272.1 600.01 401.1 305.1 V85.30 V04.81 Office Visit 04/20/2014 3:00p [place] [address] V41.3 702.0 702.19 Office Visit 02/17/2014 8:00[place] [address] 702.0 702.19 848.9 Office Visit 05/31/2013 11:45[place] [address] 401.9 600.01 362.9 272.2 365.89 366.9 574.00 Office Visit 11/25/2012 3:30[place] [address] V72.81 362.9 401.1 599.70 600.01 Office Visit 11/16/2012 1:40[place] [address] 599.70 Office Visit 10/28/2012 2:30[place] [address] 728.6 787.20 362.56 355.1 401.1 Office Visit 09/16/2012 2:45p [place] [address] 553.21 401.1 272.2 790.93 702.19 724.3 728.6 Office Visit 05/25/2012 11:00[place] [address] V70.0 401.1 272.2 790.93 715.09 723.1 278.00 366.9 702.11 V04.81 Office Visit 01/06/2012 9:00a [place] [address] 401.1 272.2 790.93 278.00 Office Visit 09/02/2011 9:15[place] [address] 401.1 272.2 790.93 728.85 783.1 553.21 Office Visit 05/20/2011 9:30[place] [address] V70.0 553.21 723.1 790.93 599.0 426.4 600.00 401.1 272.2 719.46 354.0 Office Visit 05/13/2011 12:30[place] [address] 590.80 Office Visit 09/28/2010 8:00a [place] [address] 719.46 553.21 Office Visit 06/18/2010 11:45[place] [address] 879.2 Office Visit 02/21/2010 5:30[place] [address] V70.0 721.1 401.1 354.0 600.01 553.1 Office Visit 12/20/2009 5:20[place] [address] 723.1 721.1 721.42 Office Visit 09/15/2009 2:40[place] [address] 723.1 721.1 Office Visit 07/26/2009 1:30[place] [address] 786.59 401.1 571.8 Office Visit 06/21/2009 4:00p [place] [address] 786.05 786.51 Office Visit 01/09/2009 11:30[place] [address] 601.0 Office Visit 12/26/2008 10:10a [place] [address] V70.0 305.1 401.1 272.1 112.3 553.1 601.0 599.70 791.0 Office Visit 11/23/2008 2:15p Kalpana Duran RN MS MATERIAL EXPEDITER 09631 786.59 Office Visit 08/12/2007 2:30[place] [address] V70.0 600.01 401.1 272.1 305.1 V58.69 788.43 Office Visit 07/09/2006 2:40[place] [address] V70.0 401.1 600.00 726.90 305.1 Office Visit 04/03/2005 2:20p [place] [address] V70.0 Office Visit 03/30/2004 2:10p [place] [address] 401.1 600.00 719.41 788.43 V70.0 272.1 V76.9 Office Visit 01/02/2004 9:50a [place] [address] 726.91 726.0 Office Visit 11/11/2003 3:30[place] [address] 692.9 Office Visit 10/12/2003 3:40[place] [address] 401.1 726.90 Office Visit 03/30/2003 2:20[place] [address] 401.1 V70.0 Office Visit 02/11/2003 9:30a [place] [address] 272.2 401.1 V58.69 381.01 V76.44 Office Visit 03/26/2002 2:00p [place] [address] 272.2 401.1 593.89 V70.0 Office Visit 01/25/2002 10:00[place] [address] 401.1 Office Visit 06/17/2001 2:20p [place] [address] Office Visit 05/01/2001 11:30[place] [address] Office Visit 10/01/2000 3:30[place] [address] Office Visit 05/19/2000 10:00a [place] [address] 278.00 Plan of Care 01/14/2018 - Yong Gage PAZ00.01 Encounter for general adult medical exam w abnormal findingsNew Medication:Shingrix 50 mcgNew Xrays:Bone Density Study ( Dexa)Ultrasound AAA ScreeningComments:EKG -- 10/2017 -- RBBB w/ 1st degree HBPSA -- per urologyDRE -- per urologyColonoscopy -- 2011 -- 5yrs Vital --> due nowMammo -- n/aPap -- n/aDEXA -- orderedFlu Vax -- n/aPneumovax -- 5yrs hospitalPrevnar -- todayShingrix -- sent to pharmTdap -- todayHep C -- n/aAAA screen -- u/s AAA orderedLung CA-- will discuss next yearOphtho -- 2017Dentist -- 3weeks agoHearing -- high freq/backgroundMemory/Cognition -- no issueSexual Fxn -- no issuesADL's -- independentIADL's -- independentSafety at home-- no issueEnd of Life -- all set upI10 Essential (primary) hypertensionComments:stable at current dose.E78.2 Mixed hyperlipidemiaComments: last check 05/01. recheck today.N40.1 Benign prostatic hyperplasia with lower urinary tract sympComments:doing well with meds. Sees urology. nocturia twice per dayH40.009 Preglaucoma, unspecified, unspecified eyeComments:just saw FtevmL42.9 Hypothyroidism, unspecifiedComments:recheck TSH ibzehY15.81 Unsteadiness on feetComments:?change in balance. 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 Will check ESR. will do carotiddoppler with the AAA. ??Open MRI head if visual changes continue.Z68.29 Body mass index (BMI) 29.0-29.9, adultComments:+weight loss. ? ?significant
[2018-01-22 11:45] LABS: ABS Basophils 0.1 10^3/ul (0-0.2); ABS Eosinophils 0.3 10^3/ul (0-0.6); ABS Lymphocytes 2.5 10^3/ul (1.0-4.8); ABS Monocytes 0.6 10^3/ul (0-0.8); ABS Neutrophils 4.8 10^3/ul (1.5-7.7); ABS Nucleated RBC 0 10^3/ul; Eosinophil % 3.5 % (0-6); Hematocrit 45 % (42-52); Hemoglobin 15.7 g/dl (14.0-18.0); Mean Corpuscular HGB Conc 35 g/dl (31-36); Mean Corpuscular Hemoglobin 32 pg (27-31); Mean Corpuscular Volume 92 fL (80-94); Mean Platelet Volume 7.9 um3 (7.4-10.4); Nucleated Red Blood Cells % 0.1; Platelet Count 183 10^3/ul (150-450); Red Blood Count 4.89 10^6/ul (4.00-5.40); Red Cell Distribution Width 13 % (10.5-15); White Blood Count 8.3 10^3/ul (3.5-10.8)
[2018-01-22 12:04] LABS: EGFR Non-African American 66.8 (>60)
[2018-01-22] MEDS ORDERED: Iohexol 350* (CONTRAST) 500 ML MDV IV ONE (12:17)
--- NOTE | 2018-01-22 13:46 | RAD ---
INDICATION: Visual changes. History of ocular migraines. COMPARISON: No relevant prior exams available on the [facility] for comparison. TECHNIQUE: Multidetector CT images were obtained from the aortic arch to the vertex of the head with 80 mL Omnipaque 350 IV contrast. Arterial phase of enhancement. Multiplanar reformation including maximum intensity projection. 3-D arterial volume rendering. Stenosis estimations based on denominator of distal arterial diameter. NECK ANGIOGRAM REPORT: Variant direct origin of the LEFT vertebral artery from the aortic arch between the LEFT common carotid and LEFT subclavian. No evidence for ostial stenosis of the aortic arch branch vessels. Mild predominant noncalcific plaque at the RIGHT carotid bulb and proximal internal carotid artery results in only 22% stenosis based on NASCET criteria. Minimal calcific and noncalcific plaque at the LEFT carotid bulb and proximal internal carotid artery without resulting internal carotid artery stenosis based on NASCET criteria. RIGHT dominant and smaller LEFT tibial arteries are patent and both contribute to the diminutive basilar artery. Unremarkable cerebellar artery origins. No cervical lymphadenopathy evident. Negative for suspicious osseous lesions within the obset-lc-juou. NECK ANGIOGRAM IMPRESSION: #. Approximate 22% RIGHT internal carotid artery stenosis based on NASCET criteria. #. Negative for LEFT internal carotid artery stenosis. #. Patent vertebral arteries. HEAD ANGIOGRAM REPORT: Patent intracranial internal carotid arteries and M1 and M2 segments of the middle cerebral arteries as well as the A1 and A2 segments of the anterior cerebral arteries. Patent bilateral posterior cerebral arteries are supplied primarily by the anterior circulation via patent bilateral posterior communicating arteries with variant hypoplastic P1 segments corresponding with variant diminutive size of the basilar artery. No intracranial aneurysm or vascular malformation evident. Normal opacification of the dural venous sinuses. Unremarkable cerebral sulci, ventricles, and basal cisterns. Negative for carrillo matter white matter obscuration, intra or extra-axial fluid collection, or mass effect. No suspicious abnormality at the orbits. Unremarkable calvarium and skull base. Minimal mucosal thickening at the paranasal sinuses. Negative for paranasal sinus fluid levels. Clear mastoid air spaces. HEAD ANGIOGRAM IMPRESSION: #. No evidence for central large vessel intracranial arterial occlusion or stenosis. #. No acute intracranial process evident. CPT II: CPT II Codes: 3100F
[2018-01-22 14:30] VITALS: BP 122/77
== END 2018-01-22 14:48 | disposition home or self-care (01) ==
LOC: ED 10:35
DX: G43.109 Migraine with aura, not intractable, without status migrainosus (principal); I65.21 Occlusion and stenosis of right carotid artery; I10 Essential (primary) hypertension; Z79.899 Other long term (current) drug therapy; Z83.518 Family history of other specified eye disorder; Z87.891 Personal history of nicotine dependence
CPT/HCPCS: 36415; 70496; 70498; 80053; 82550; 85025; 85652; 86140; 93005; 99283; Q9967